=== PATIENT | female | born 1950 | race Caucasian/White ===

== ENCOUNTER → 2017-07-24 | Emergency (ER) | payer MEDICARE ==
[~2017-07-24] VITALS: Ht 162.6 cm; Wt 98.4 kg
[~2017-07-24] MED LIST: ALPR0.25 PO; IV NORMAL SALINE 1,000ML 1,000 ML IV ONE; METO-239 PO; OMEP20TA63 PO; ONDA4TAB7 PO; ONDANSETRON PF 4 MG/2 ML VIAL. IV ONE
--- NOTE | 2017-07-24 14:19 | EKG ---
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
[2017-07-24 14:29] LABS: BASO % 0 % (0-3); EOS % 0 % (0-3); HEMATOCRIT 45.7 % (36.0-47.0); HEMOGLOBIN 15.6 g/dL (12.0-15.5); LYMPH # 0.3 x10^3/uL (1.0-4.8); LYMPH % 5 % (24-48); MEAN CORPUSCULAR HEMOGLOBIN 31 pg (25-35); MEAN CORPUSCULAR HGB CONC 34 g/dL (31-37); MEAN CORPUSCULAR VOLUME 90 fL (79-100); MONO # 0.3 x10^3/uL (0.0-1.1); MONO % 4 % (0-9); NEUT # 5.7 x10^3uL (1.8-7.7); NEUT % 90 % (31-73); PLATELET COUNT 136 x10^3/uL (140-400); RED BLOOD COUNT 5.08 x10^6/uL (3.50-5.40); RED CELL DISTRIBUTION WIDTH 13.6 % (11.5-14.5); WHITE BLOOD COUNT 6.4 x10^3/uL (4.0-11.0)
[2017-07-24 14:44] LABS: ALBUMIN 3.7 g/dL (3.4-5.0); ALBUMIN/GLOBULIN RATIO 1.1 (1.0-1.7); CALCIUM 8.9 mg/dL (8.5-10.1); CREATININE 0.7 mg/dL (0.6-1.0); POTASSIUM 4.3 mmol/L (3.5-5.1); TOTAL BILIRUBIN 0.8 mg/dL (0.2-1.0)
[2017-07-24 15:15] LABS: INFLUENZA A PATIENT NEGATIVE (NEGATIVE); INFLUENZA B PATIENT NEGATIVE (NEGATIVE)
[2017-07-24 15:37] LABS: BACTERIA,URINE 0 /HPF (0-FEW); BILIRUBIN,URINE NEG (NEG); CLARITY,URINE HAZY; COLOR,URINE YELLOW; GLUCOSE,URINE NEG (NEG); NITRITE,URINE NEG (NEG); SQUAMOUS EPITHELIAL CELL,UR FEW /LPF; UROBILINOGEN,URINE 0.2 mg/dL (0.2 mg/dL)
[2017-07-24 15:40] VITALS: BP 121/73
--- NOTE | 2017-07-24 21:40 | ED.ADGEN ---
Past History Past Medical History: A-Fib, Hypertension, Other Past Surgical History: Appendectomy, Hysterectomy, Other Alcohol Use: None Drug Use: None Adult General HPI HPI Patient is a 57-year-old woman, history of atrial fibrillation, hypertension, who presents to the emergency department with complaint of "flulike symptoms". Patient states she received her flu and pneumonia vaccinations on , she states that beginning night she began experiencing body aches, nausea and vomiting, diarrhea, and generalized malaise. She denies any fevers or chills , any chest pain or shortness breath, any cough, any blood in her stool, any urinary complaints. No sick contacts or exposures. She states she also has some redness in the left upper extremity where she received a flu vaccination. Review of Systems Review of Systems Constitutional: Denies fever or chills []generalized malaise. Eyes: Denies change in visual acuity, redness, or eye pain [] HENT: Denies nasal congestion or sore throat [] Respiratory: Denies cough or shortness of breath [] Cardiovascular: No additional information not addressed in HPI [] GI: Denies abdominal pain, complaining of nausea, vomiting, diarrhea. No bloody stools or bloody emesis. : Denies dysuria or hematuria [] Musculoskeletal: Denies back pain or joint pain [] Integument: Denies rash or skin lesions [] Neurologic: Denies headache, focal weakness or sensory changes [] Endocrine: Denies polyuria or polydipsia [] Current Medications Current Medications Current Medications Medications (Trade) Dose Ordered Sig/Gerald Start Time Stop Time Status Last Admin Dose Admin Ondansetron HCl (Zofran) 4 mg 1X ONCE 07/24/17 14:15 07/24/17 14:16 DC 07/24/17 14:19 4 MG Sodium Chloride 1,000 ml @ 1,000 mls/hr 1X ONCE 07/24/17 14:20 07/24/17 15:19 DC 07/24/17 14:20 1,000 MLS/HR Allergies Allergies Allergies Coded Allergies Type Severity Reaction Last Updated Verified No Known Drug Allergies 10/14/14 No Physical Exam Physical Exam Constitutional: Well developed, well nourished, no acute distress, non-toxic appearance. [] HENT: Normocephalic, atraumatic, bilateral external ears normal, oropharynx moist, no oral exudates, nose normal. [] Eyes: PERRLA, EOMI, conjunctiva normal, no discharge. [] Neck: Normal range of motion, no tenderness, supple, no stridor. [] Cardiovascular:Heart rate regular rhythm, no murmur , S1, S2, rubs or gallops.[] Lungs & Thorax: Bilateral breath sounds clear to auscultation , no wheezing, rhonchi, rales. No chest or crepitus or tenderness.[] Abdomen: Bowel sounds normal, soft, no tenderness, no rebound, rigidity, no guarding, no masses, no pulsatile masses. [] Skin: Warm, dry, no erythema, no rash. []Patient noted to have areas of mild irritation, redness left upper extremity, below the area where the patient receive her flu vaccination. No evidence of induration or abscess formation. No other lesions identified. Back: No tenderness, no CVA tenderness. [] Extremities: No tenderness, no cyanosis, no clubbing, ROM intact, no edema. Negative Homans sign.[] Neurologic: Alert and oriented X 3, normal motor function, normal sensory function, no focal deficits noted. [] Psychologic: Affect normal, judgement normal, mood normal. [] Current Patient Data Vital Signs Vital Signs Date Time Temp Pulse Resp B/P (MAP) Pulse Ox O2 Delivery O2 Flow Rate FiO2 07/24/17 15:40 69 16 121/73 (89) 96 Room Air 07/24/17 13:54 98.0 Lab Results Laboratory Tests Test 07/24/17 14:00 07/24/17 14:10 07/24/17 15:10 Influenza Type A (Rapid) Negative (NEGATIVE) Influenza Type B (Rapid) Negative (NEGATIVE) White Blood Count 6.4 x10^3/uL (4.0-11.0) Red Blood Count 5.08 x10^6/uL (3.50-5.40) Hemoglobin 15.6 g/dL (12.0-15.5) H Hematocrit 45.7 % (36.0-47.0) Mean Corpuscular Volume 90 fL (79-100) Mean Corpuscular Hemoglobin 31 pg (25-35) Mean Corpuscular Hemoglobin Concent 34 g/dL (31-37) Red Cell Distribution Width 13.6 % (11.5-14.5) Platelet Count 136 x10^3/uL (140-400) L Neutrophils (%) (Auto) 90 % (31-73) H Lymphocytes (%) (Auto) 5 % (24-48) L Monocytes (%) (Auto) 4 % (0-9) Eosinophils (%) (Auto) 0 % (0-3) Basophils (%) (Auto) 0 % (0-3) Neutrophils # (Auto) 5.7 x10^3uL (1.8-7.7) Lymphocytes # (Auto) 0.3 x10^3/uL (1.0-4.8) L Monocytes # (Auto) 0.3 x10^3/uL (0.0-1.1) Eosinophils # (Auto) 0.0 x10^3/uL (0.0-0.7) Basophils # (Auto) 0.0 x10^3/uL (0.0-0.2) Sodium Level 141 mmol/L (136-145) Potassium Level 4.3 mmol/L (3.5-5.1) Chloride Level 105 mmol/L (98-107) Carbon Dioxide Level 26 mmol/L (21-32) Anion Gap 10 (6-14) Blood Urea Nitrogen 20 mg/dL (7-20) Creatinine 0.7 mg/dL (0.6-1.0) Estimated GFR (Cockcroft-Gault) 83.0 BUN/Creatinine Ratio 29 (6-20) H Glucose Level 120 mg/dL (70-99) H Calcium Level 8.9 mg/dL (8.5-10.1) Total Bilirubin 0.8 mg/dL (0.2-1.0) Aspartate Amino Transferase (AST) 49 U/L (15-37) H Alanine Aminotransferase (ALT) 66 U/L (14-59) H Alkaline Phosphatase 133 U/L (46-116) H Total Protein 7.0 g/dL (6.4-8.2) Albumin 3.7 g/dL (3.4-5.0) Albumin/Globulin Ratio 1.1 (1.0-1.7) Lipase 93 U/L (73-393) Urine Collection Type Unknown Urine Color Yellow Urine Clarity Hazy Urine pH 5.0 Urine Specific [place] 1.015 Urine Protein Neg (NEG-TRACE) Urine Glucose (UA) Neg mg/dL (NEG) Urine Ketones (Stick) 15 mg/dL (NEG) Urine Blood Mod (NEG) Urine Nitrite Neg (NEG) Urine Bilirubin Neg (NEG) Urine Urobilinogen Dipstick 0.2 mg/dL (0.2 mg/dL) Urine Leukocyte Esterase Neg (NEG) Urine RBC 1-2 /HPF (0-2) Urine WBC 1-4 /HPF (0-4) Urine Squamous Epithelial Cells Few /LPF Urine Bacteria 0 /HPF (0-FEW) Urine Mucus Mod /LPF EKG EKG EC: Sinus rhythm, heart rate 74 beats/minute, occasional APCs noted, left axis deviation, QTC of 438, ME 176, QRS of 92, abnormal ECG, does not meet STEMI criteria. As interpreted by me.[] Radiology/Procedures Radiology/Procedures Not indicated.[] Course & Med Decision Making Course & Med Decision Making Pertinent Labs and Imaging studies reviewed. (See chart for details) Patient afebrile, without any abdominal tenderness or evidence of lower airspace disease identified on examination. Laboratory studies obtained, do not reveal any evidence of acutely concerning findings. Patient received IV fluids, and Zofran in the ED. On reevaluation she states she is feeling "so much better ". Findings discussed with patient, patient is exhibiting signs of a viral type syndrome, which may be a reaction to her recent flu vaccination, patient's flu swabs are negative in the ED. Patient states that she feels ready to go home at this time, and is ambulating without difficulty in the ED, we discussed concerning symptoms that would prompt return to the emergency department, importance of staying well-hydrated, use of jriz-tqz-vanxxaj medications, and getting plenty of rest. Patient to follow-up with her primary care provider, to continue medications as directed by her PCP, and to return to the ED for any new or concerning symptoms as discussed. Final Impression Final Impression [] Problems: Dragon Disclaimer Dragon Disclaimer This electronic medical record was generated, in whole or in part, using a voice recognition dictation system. Departure: Impression: Primary Impression: Viral syndrome Disposition: HOME, SELF-CARE Condition: IMPROVED Scripts Ondansetron Hcl (ZOFRAN) 4 Mg Tablet 4 MG PO PRN Q8HRS Y for NAUSEA/VOMITING, #12 Prov: JOSE LUIS ZAIDI DO 07/24/17 JOSE LUIS ZAIDI DO Jul 24, 2017 21:40
== END ==
LOC: ER 13:19
DX: B34.9 Viral infection, unspecified (principal); I10 Essential (primary) hypertension; I48.91 Unspecified atrial fibrillation
CPT/HCPCS: 36415; 80053; 81001; 83690; 85025; 87804; 93005; 96361; 96374; 99285; J2405; 99284; J7030

== ENCOUNTER → 2017-08-03 | Outpatient (CLI) | payer MEDICARE ==
[2017-07-24 15:40] VITALS: BP 121/73
[~2017-08-03] MED LIST changes: -IV NORMAL SALINE 1,000ML 1,000 ML IV ONE; -ONDANSETRON PF 4 MG/2 ML VIAL. IV ONE
--- NOTE | 2017-08-03 16:08 | RAD ---
Right lower extremity venous ultrasound, 08/03/2017 : History: Right lower leg pain Duplex evaluation including grayscale, color flow and spectral Doppler analysis was performed. The femoral and popliteal veins show no filling defects to suggest DVT. The visualized deep veins in the right calf are unremarkable. There are multiple superficial varicosities along the medial aspect of the calf. No thrombosed varicosities are noted. There is a 4.6 cm fluid collection in the popliteal fossa compatible with a Mejia's cyst. IMPRESSION: 1. There is no sonographic evidence of deep vein thrombosis in the right lower extremity. 2. Moderate superficial varicosities in the right calf. 3. Right popliteal cyst
== END | disposition home or self-care (01) ==
LOC: US 14:08
PROVIDERS: ATTEND Family Medicine
DX: M71.21 Synovial cyst of popliteal space [Baker], right knee (principal); I83.91 Asymptomatic varicose veins of right lower extremity
CPT/HCPCS: 93971

== ENCOUNTER 2017-12-28 22:29 | Emergency (ER) | payer MEDICARE ==
[~2017-12-28] VITALS: Ht 162.6 cm; Wt 100.1 kg
[2017-12-28] MEDS ORDERED: ONDANSETRON PF 4 MG/2 ML VIAL. ONE (23:02)
[2017-12-28 23:12] LABS: BASO % 0 % (0-3); EOS # 0.1 x10^3/uL (0.0-0.7); EOS % 1 % (0-3); HEMATOCRIT 44.8 % (36.0-47.0); HEMOGLOBIN 15.1 g/dL (12.0-15.5); LYMPH # 1.2 x10^3/uL (1.0-4.8); LYMPH % 14 % (24-48); MEAN CORPUSCULAR HEMOGLOBIN 30 pg (25-35); MEAN CORPUSCULAR HGB CONC 34 g/dL (31-37); MEAN CORPUSCULAR VOLUME 90 fL (79-100); MONO # 0.3 x10^3/uL (0.0-1.1); MONO % 3 % (0-9); NEUT # 6.9 x10^3uL (1.8-7.7); NEUT % 82 % (31-73); PLATELET COUNT 155 x10^3/uL (140-400); RED BLOOD COUNT 4.96 x10^6/uL (3.50-5.40); RED CELL DISTRIBUTION WIDTH 13.7 % (11.5-14.5); WHITE BLOOD COUNT 8.4 x10^3/uL (4.0-11.0)
--- NOTE | 2017-12-28 23:21 | PHYS DOC ---
Past History Past Medical History: A-Fib, Hypertension, Other Past Surgical History: Appendectomy, Hysterectomy, Other Alcohol Use: None Drug Use: None Adult General Chief Complaint Chief Complaint: RECTAL BLEED HPI HPI Patient is a 67 year old female who presents with complaint of rectal bleeding. Patient states her symptoms have been intermittent throughout the day today. Patient states that she has noticed significant amounts of bright red blood in her stools. Patient states she has history of gastric ulcers but has had no prior history of lower GI bleeding. Patient states that she feels sick to her stomach but is not having any pain in her abdomen. Patient denies any associated fevers. Patient follows a Dr. Patiño for primary care. The patient is currently on Eliquis for treatment of chronic atrial fibrillation.[] Review of Systems Review of Systems Constitutional: Generalized weakness, denies fever[] Eyes: Denies change in visual acuity, redness, or eye pain [] HENT: Denies nasal congestion or sore throat [] Respiratory: Shortness breath with exertion[] Cardiovascular: Denies chest pain or edema[] GI: Bloody stools, nausea, denies abdominal pain[] : Denies dysuria or hematuria [] Musculoskeletal: Denies back pain or joint pain [] Integument: Denies rash or skin lesions [] Neurologic: Denies headache, focal weakness or sensory changes [] All other systems were reviewed and found to be within normal limits, except as documented in this note. Current Medications Current Medications Current Medications Medications (Trade) Dose Ordered Sig/Gerald Start Time Stop Time Status Last Admin Dose Admin Ondansetron HCl (Zofran) 4 mg STK-MED ONCE 12/28/17 23:02 12/28/17 23:03 DC Sodium Chloride 1,000 ml @ 1,000 mls/hr Q1H 12/28/17 23:30 12/29/17 00:29 Allergies Allergies Allergies Coded Allergies Type Severity Reaction Last Updated Verified No Known Drug Allergies 10/14/14 No Physical Exam Physical Exam Constitutional: Alert, afebrile, appears in [id number] discomfort. [] HENT: Normocephalic, atraumatic, bilateral external ears normal, oropharynx moist, no oral exudates, nose normal. [] Eyes: PERRLA, EOMI, conjunctiva normal, no discharge. [] Neck: Normal range of motion, no tenderness, supple, no stridor. [] Cardiovascular: Tachycardia, irregular rhythm, no murmur [] Lungs & Thorax: Bilateral breath sounds clear to auscultation [] Abdomen: Bowel sounds normal, soft, no tenderness, no masses, no pulsatile masses. Rectal: Dried blood present on external orifice of the anus, moderate amount of dried blood on underwear and peroneal distribution, stool brown in color, nontender on exam, no external hemorrhoids or palpated internal hemorrhoids[] Skin: Warm, dry, no erythema, no rash. [] Back: No tenderness, no CVA tenderness. [] Extremities: No tenderness, no cyanosis, no clubbing, ROM intact, no edema. [] Neurologic: Alert and oriented X 3, normal motor function, normal sensory function, no focal deficits noted. [] Current Patient Data Vital Signs Vital Signs Date Time Temp Pulse Resp B/P (MAP) Pulse Ox O2 Delivery O2 Flow Rate FiO2 12/28/17 22:30 97.8 72 24 94 Room Air Lab Results Laboratory Tests Test 12/28/17 22:53 12/28/17 23:20 White Blood Count 8.4 x10^3/uL Red Blood Count 4.96 x10^6/uL Hemoglobin 15.1 g/dL Hematocrit 44.8 % Mean Corpuscular Volume 90 fL Mean Corpuscular Hemoglobin 30 pg Mean Corpuscular Hemoglobin Concent 34 g/dL Red Cell Distribution Width 13.7 % Platelet Count 155 x10^3/uL Neutrophils (%) (Auto) 82 % Lymphocytes (%) (Auto) 14 % Monocytes (%) (Auto) 3 % Eosinophils (%) (Auto) 1 % Basophils (%) (Auto) 0 % Neutrophils # (Auto) 6.9 x10^3uL Lymphocytes # (Auto) 1.2 x10^3/uL Monocytes # (Auto) 0.3 x10^3/uL Eosinophils # (Auto) 0.1 x10^3/uL Basophils # (Auto) 0.0 x10^3/uL Prothrombin Time 10.7 SEC Prothromb Time International Ratio 1.0 Activated Partial Thromboplast Time 26 SEC Sodium Level 143 mmol/L Potassium Level 3.7 mmol/L Chloride Level 107 mmol/L Carbon Dioxide Level 25 mmol/L Anion Gap 11 Blood Urea Nitrogen 25 mg/dL Creatinine 0.8 mg/dL Estimated GFR (Cockcroft-Gault) 71.1 BUN/Creatinine Ratio 31 Glucose Level 131 mg/dL Calcium Level 9.2 mg/dL Total Bilirubin 0.4 mg/dL Aspartate Amino Transf (AST/SGOT) 18 U/L Alanine Aminotransferase (ALT/SGPT) 23 U/L Alkaline Phosphatase 111 U/L Total Protein 7.4 g/dL Albumin 3.8 g/dL Albumin/Globulin Ratio 1.1 Urine Collection Type Unknown Urine Color Yellow Urine Clarity Clear Urine pH 5.5 Urine Specific [place] 1.015 Urine Protein Neg Urine Glucose (UA) Neg mg/dL Urine Ketones (Stick) Neg mg/dL Urine Blood Small Urine Nitrite Neg Urine Bilirubin Neg Urine Urobilinogen Dipstick 0.2 mg/dL Urine Leukocyte Esterase Neg Urine RBC Rare /HPF Urine WBC Rare /HPF Urine Squamous Epithelial Cells Few /LPF Urine Bacteria 0 /HPF Stool Occult Blood Positive Current Medications Medications (Trade) Dose Ordered Sig/Gerald Route PRN Reason Start Time Stop Time Status Last Admin Dose Admin Sodium Chloride 1,000 ml @ 1,000 mls/hr Q1H IV 12/28/17 23:30 12/29/17 00:29 12/28/17 23:30 Ondansetron HCl (Zofran) 4 mg STK-MED ONCE .ROUTE 12/28/17 23:02 12/28/17 23:03 DC Lorazepam (Ativan) 1 mg 1X ONCE IV 12/28/17 23:30 12/28/17 23:31 DC 12/28/17 23:31 Ondansetron HCl (Zofran) 4 mg 1X ONCE IV 12/28/17 23:30 12/28/17 23:31 DC 12/28/17 23:31 EKG EKG Interpreted by me: Heart rate 75, sinus rhythm, leftward axis, no acute ST/T- wave abnormalities present[] Radiology/Procedures Radiology/Procedures 3 view acute abdominal series interpreted by me: No pulmonary infiltrates or effusions, normal cardiac silhouette, nonobstructive bowel gas pattern, no free air under the diaphragm[] Course & Med Decision Making Course & Med Decision Making Pertinent Labs and Imaging studies reviewed. (See chart for details) The patient has evidence of passing a significant amount of blood recently though currently the patient only had scant amounts of gross blood on exam. Of concern however is that fact that the patient has lower GI bleeding of unknown source and patient is currently blood thinner therapy. Patient is appropriate for admission for further surveillance and GI consultation. Unfortunately GI consultation is not available at this facility, thus the decision was made to transfer the patient. I spoke with Dr. Raya at [facility] who accepted care of patient for transfer. Patient will be transferred by ground EMS to [facility]. Dragon Disclaimer Dragon Disclaimer This electronic medical record was generated, in whole or in part, using a voice recognition dictation system. Departure Departure: Impression: Primary Impression: Acute lower GI bleeding Disposition: T-TRM HOSP Condition: STABLE Referrals: LADAN PATIÑO MD (PCP) JOSEFA FERGUSON MD Dec 28, 2017 23:21
[2017-12-28 23:27] LABS: ALBUMIN 3.8 g/dL (3.4-5.0); ALBUMIN/GLOBULIN RATIO 1.1 (1.0-1.7); CALCIUM 9.2 mg/dL (8.5-10.1); CREATININE 0.8 mg/dL (0.6-1.0); GFR 71.1; POTASSIUM 3.7 mmol/L (3.5-5.1); TOTAL BILIRUBIN 0.4 mg/dL (0.2-1.0); TOTAL PROTEIN 7.4 g/dL (6.4-8.2)
[2017-12-28] MEDS ORDERED: IV NORMAL SALINE 1,000ML 1,000 ML IV SCH (23:30)
[2017-12-28] MEDS ORDERED: ONDANSETRON PF 4 MG/2 ML VIAL. IV ONE (23:30)
[2017-12-28] MEDS ORDERED: LORazepam 2 MG/ML VIAL IV ONE (23:30)
[2017-12-28 23:45] LABS: BILIRUBIN,URINE NEG (NEG); CLARITY,URINE CLEAR; COLOR,URINE YELLOW; GLUCOSE,URINE NEG (NEG); NITRITE,URINE NEG (NEG); UROBILINOGEN,URINE 0.2 mg/dL (0.2 mg/dL)
[2017-12-28 23:46] LABS: BACTERIA,URINE 0 /HPF (0-FEW); FECAL OB PT POSITIVE (NEG); RBC,URINE RARE /HPF (0-2); SQUAMOUS EPITHELIAL CELL,UR FEW /LPF; WBC,URINE RARE /HPF (0-4)
[2017-12-28] MEDS ORDERED: PROP150T2 PO (23:46)
[2017-12-28] MEDS ORDERED: APIX5TAB3 PO (23:46)
[2017-12-29 00:12] VITALS: BP 116/62
--- NOTE | 2017-12-29 04:11 | EKG ---
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
--- NOTE | 2017-12-29 07:10 | RAD ---
Indication: Rectal bleeding, general weakness, chills and nausea Technique: PA chest and upright and supine views of the abdomen and pelvis Comparison: None Findings: Heart is normal in size. Tortuous descending thoracic aorta. Lungs are clear. No pneumothorax or pleural effusion. No evidence of free intraperitoneal air. No abnormally dilated bowel loops or air-fluid levels. No abnormal calcific densities projecting over the kidneys or expected course of the ureters. Visualized bones are within normal limits. Impression: No acute radiographic findings.
== END 2017-12-29 00:42 | disposition short-term general hospital (02) ==
LOC: ER 22:29
DX: K92.2 Gastrointestinal hemorrhage, unspecified (principal); I48.2 Chronic atrial fibrillation; I10 Essential (primary) hypertension; Z79.01 Long term (current) use of anticoagulants
CPT/HCPCS: 36415; 74022; 80053; 81001; 82274; 85025; 85610; 85730; 93005; 96361; 96374; 96375; 99285; J2060; J2405; J7030

== ENCOUNTER 2018-12-11 09:00 | Emergency (ER) | payer MEDICARE ==
[~2018-12-11] VITALS: Ht 162.6 cm; Wt 100.1 kg
[~2018-12-11 09:00] MED LIST changes: +APIX5TAB3 PO; +PROP150T2 PO
[2018-12-11] MEDS ORDERED: ONDANSETRON PF 4 MG/2 ML VIAL. ONE (09:19)
[2018-12-11] MEDS: FAMOTIDINE 20 MG/2 ML VIAL IVP ONE (09:31)
[2018-12-11] MEDS: ONDANSETRON PF 4 MG/2 ML VIAL. IV ONE (09:33)
[2018-12-11] MEDS: IV NORMAL SALINE 1,000ML 1,000 ML IV ONE (09:34)
--- NOTE | 2018-12-11 09:36 | PHYS DOC ---
Past History Past Medical History: A-Fib, Anxiety, GERD, Hypertension, Other Past Surgical History: Appendectomy, Hysterectomy, Other Alcohol Use: None Drug Use: None Adult General Chief Complaint Chief Complaint: nausea HPI HPI Patient is a 68 year old female who presents with complaining of nausea. Patient states she had right hip surgery after a fall on November 13 and was discharged from rehabilitation 5 days ago. Patient states she had episodes of nausea in the morning that usually lasts about one or 2 hours and she thinks it was related to her anxiety but for the last 4 days she has had frequent episodes of nausea all day without vomiting. Patient denies diarrhea, chest pain , shortness of breath, urinary symptoms, fever and chills, abdominal pain. Patient states she was seen by her primary care physician 2 days ago and had prescription for nausea medication that was not available at [facility]. Review of Systems Review of Systems Constitutional: Denies fever or chills [] Eyes: Denies change in visual acuity, redness, or eye pain [] HENT: Denies nasal congestion or sore throat [] Respiratory: Denies cough or shortness of breath [] Cardiovascular: No additional information not addressed in HPI [] GI: Denies abdominal pain, vomiting, bloody stools or diarrhea, reports nausea [] : Denies dysuria or hematuria [] Musculoskeletal: Denies back pain or joint pain [] Integument: Denies rash or skin lesions [] Neurologic: Denies headache, focal weakness or sensory changes [] Endocrine: Denies polyuria or polydipsia [] All other systems were reviewed and found to be within normal limits, except as documented in this note. Current Medications Current Medications Current Medications Medications (Trade) Dose Ordered Sig/[facility] Start Time Stop Time Status Last Admin Dose Admin Ondansetron HCl (Zofran) 4 mg STK-MED ONCE 12/11/18 09:19 12/11/18 09:20 DC Allergies Allergies Allergies Coded Allergies Type Severity Reaction Last Updated Verified No Known Drug Allergies 10/14/14 No Physical Exam Physical Exam Constitutional: Well nourished, mild distress, non-toxic appearance. [] HENT: Normocephalic, atraumatic, oropharynx moist, no oral exudates, nose normal. [] Eyes: PERRLA, EOMI, conjunctiva normal, no discharge. [] Neck: Normal range of motion, no tenderness, supple, no stridor. [] Cardiovascular:Heart rate regular rhythm, no murmur [] Lungs & Thorax: Bilateral breath sounds clear to auscultation [] Abdomen: Bowel sounds normal, soft, no tenderness, no masses, no pulsatile masses. [] Skin: Warm, dry, no erythema, no rash. [] Back: No tenderness, no CVA tenderness. [] Extremities: No tenderness, no cyanosis, no clubbing, ROM intact, no edema. [] Neurologic: Alert and oriented X 3, normal motor function, normal sensory function, no focal deficits noted. [] Psychologic: Affect anxious, judgement normal, mood normal. [] EKG EKG EKG interpreted by me. EKG at 0943 showed sinus rhythm at rate of 59, low voltage QRS, poor R-wave progress in anteroseptal leads, no acute ST and T-wave abnormalities. Radiology/Procedures Radiology/[place] [address] IMAGING REPORT Signed PATIENT: TYRESE PORTER ACCOUNT: [id number] : 1950 LOCATION: ER AGE: 68 SEX: F EXAM STATUS: REG ER ORD. PHYSICIAN: CARROLL DAVID MD REASON: episodes of nausea PROCEDURE: ABDOMEN LTD Right upper quadrant abdominal ultrasound, 12/11/2018: HISTORY: Nausea and vomiting The gallbladder appears contracted and is poorly delineated. No definite gallstones are seen. The common hepatic duct is within normal limits measuring 4 mm. No hepatic abnormality is seen. The visualized portions of the pancreas are unremarkable. Several right renal cysts are noted. The largest of these measures 10.9 cm and arises from the lower pole. IMPRESSION: 1. Contracted, poorly delineated gallbladder. 2. Large right renal cyst. Electronically signed by: Randolph Cuevas MD (12/11/2018 10:59 AM) [facility] DICTATED AND SIGNED BY: RANDOLPH CUEVAS MD DATE: 12/11/18 1059 CC: LADAN RAMIREZ MD; CARROLL DAVID MD ~ Course & Med Decision Making Course & Med Decision Making Pertinent Labs and Imaging studies reviewed. (See chart for details) Evaluation of patient in ER showed 68-year-old female patient with complaining of nausea for almost one month that getting worse for the last 4 days. Patient was anxious and had unremarkable physical exam. Patient taking hydrocodone for right hip surgery. Patient instructed to take pain medication with food and prescription for Zofran was given. Ultrasound of gallbladder and right upper quadrant showed multiple right renal cyst and patient instructed to follow-up with on-call urologist. @ 1400: Patient was informed about the blood test results and renal disease and needs for follow-up but patient became anxious and had heart rate of 120s at time of discharge. EKG at 1207 showed atrial fibrillation with heart rate of 118 with left rowan axis deviation without acute ST and T-wave abnormalities. Patient treated with Ativan with mild improvement of heart rate at 110. Patient had 20 mg of Cardizem IV bolus with improving heart rate of 75 with atrial fibrillation. Patient did not take her metoprolol today. 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 Dragon Disclaimer Dragon Disclaimer This electronic medical record was generated, in whole or in part, using a voice recognition dictation system. Departure Departure: Impression: Primary Impression: Nausea Additional Impressions: Renal cyst Anxiety Medication side effect Atrial fibrillation with RVR Disposition: HOME, SELF-CARE (at 1400) Condition: IMPROVED Referrals: LADAN RAMIREZ MD (PCP) TR[facility] EDGE Patient Instructions: Atrial Fibrillation, Ixch-hy-Hnee, Nausea, Adult Additional Instructions: Drink plenty of liquids Follow-up with your primary care physician in 3-5 days Return to ER if not getting better Follow-up with on-call urology physician Dr Edge in one or 2 days regarding large right kidney cyst Continue current heart medication Scripts Ondansetron Hcl (ZOFRAN) 4 Mg Tablet 1 TAB PO Q6HRS for nausea and vomiting, #12 TAB Prov: CARROLL DAVID MD 12/11/18 Critical Care Time Critical care time was 40 minutes exclusive of procedures. Problem Qualifiers CARROLL DAVID MD Dec 11, 2018 09:36
[2018-12-11 09:54] LABS: BASO % 1 % (0-3); EOS % 1 % (0-3); HEMATOCRIT 39.1 % (36.0-47.0); HEMOGLOBIN 12.8 g/dL (12.0-15.5); LYMPH # 0.7 x10^3/uL (1.0-4.8); LYMPH % 16 % (24-48); MEAN CORPUSCULAR HEMOGLOBIN 30 pg (25-35); MEAN CORPUSCULAR HGB CONC 33 g/dL (31-37); MEAN CORPUSCULAR VOLUME 90 fL (79-100); MONO # 0.2 x10^3/uL (0.0-1.1); MONO % 5 % (0-9); NEUT # 3.6 x10^3uL (1.8-7.7); NEUT % 78 % (31-73); PLATELET COUNT 204 x10^3/uL (140-400); RED BLOOD COUNT 4.34 x10^6/uL (3.50-5.40); RED CELL DISTRIBUTION WIDTH 14.8 % (11.5-14.5); WHITE BLOOD COUNT 4.6 x10^3/uL (4.0-11.0)
[2018-12-11 10:09] LABS: ALBUMIN 3.3 g/dL (3.4-5.0); ALBUMIN/GLOBULIN RATIO 0.9 (1.0-1.7); CALCIUM 8.9 mg/dL (8.5-10.1); CREATININE 0.6 mg/dL (0.6-1.0); GFR 98.8; POTASSIUM 3.5 mmol/L (3.5-5.1); TOTAL BILIRUBIN 0.6 mg/dL (0.2-1.0); TOTAL PROTEIN 6.8 g/dL (6.4-8.2)
[2018-12-11 10:56] LABS: BACTERIA,URINE 0 /HPF (0-FEW); BILIRUBIN,URINE NEG (NEG); CLARITY,URINE CLEAR; COLOR,URINE YELLOW; GLUCOSE,URINE NEG (NEG); NITRITE,URINE NEG (NEG); RBC,URINE RARE /HPF (0-2); SQUAMOUS EPITHELIAL CELL,UR OCC /LPF; UROBILINOGEN,URINE 0.2 mg/dL (0.2 mg/dL); WBC,URINE RARE /HPF (0-4)
--- NOTE | 2018-12-11 11:02 | RAD ---
Right upper quadrant abdominal ultrasound, 12/11/2018: HISTORY: Nausea and vomiting The gallbladder appears contracted and is poorly delineated. No definite gallstones are seen. The common hepatic duct is within normal limits measuring 4 mm. No hepatic abnormality is seen. The visualized portions of the pancreas are unremarkable. Several right renal cysts are noted. The largest of these measures 10.9 cm and arises from the lower pole. IMPRESSION: 1. Contracted, poorly delineated gallbladder. 2. Large right renal cyst. Electronically signed by: Randolph Salvador MD (12/11/2018 10:59 AM) [facility]
[2018-12-11] MEDS ORDERED: ONDA4TAB7 PO (11:26)
[2018-12-11] MEDS ORDERED: dilTIAZem 25 MG/5 ML VIAL IVP ONE (12:30)
[2018-12-11] MEDS: dilTIAZem 25 MG/5 ML VIAL IVP ONE (13:18)
[2018-12-11 14:32] VITALS: BP 108/58
--- NOTE | 2018-12-11 16:47 | EKG ---
[address] [address] Test Date: 2018-12-11 Test Time: 12:07:12 Pat Name: TYRESE PORTER Department: Room: Gender: F Legal Process Specialist: MARBELLA : 1950 Requested By: CARROLL DAVID Order Number: [id number] Reading MD: Keegan Villaseñor MD Measurements Intervals [place] Rate: 108 P: [place]: QRS: -11 QRSD: 92 T: 16 QT: 344 QTc: 465 Interpretive Statements ATRIAL FIBRILLATION WITH RVR NON-SPECIFIC ST/T CHANGES Electronically Signed On 12-19-2018 23:17:04 CDT by Keegan Villaseñor MD
--- NOTE | 2018-12-11 16:54 | EKG ---
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
== END 2018-12-11 14:32 | disposition home or self-care (01) ==
LOC: ER 09:00
DX: N28.1 Cyst of kidney, acquired (principal); I48.2 Chronic atrial fibrillation; F41.9 Anxiety disorder, unspecified; N32.89 Other specified disorders of bladder; T40.2X5A Adverse effect of other opioids, initial encounter; R11.2 Nausea with vomiting, unspecified; K21.9 Gastro-esophageal reflux disease without esophagitis; I10 Essential (primary) hypertension; Z90.89 Acquired absence of other organs; Z90.710 Acquired absence of both cervix and uterus; Y92.89 Other specified places as the place of occurrence of the external cause
CPT/HCPCS: 36415; 76705; 80053; 81001; 83690; 83880; 84484; 85025; 93005; 96361; 96374; 96375; 99284; J2060; J2405; J3490; J7030

== ENCOUNTER → 2020-04-30 | Outpatient (CLI) | payer MEDICARE ==
--- NOTE | 2020-04-30 10:34 | RAD ---
Bilateral knees, 3 views each INDICATION: Bilateral knee pain FINDINGS: AP, lateral and oblique views of the right knee shows medial joint space narrowing and mild subchondral sclerosis with osteophytic spurring. To a lesser extent, mild osteophytic spurring is present in the right superior patella pole and in the anterior aspect of the femoral condyles on the lateral view as well. Mild varus angulation is present. Bones are demineralized. No acute fracture or aggressive osseous lesions are seen. No joint effusion. There are varices in the subcutaneous soft tissues around the right knee. AP, lateral and oblique views of the left knee show medial compartment osteophytic spurring, subchondral sclerosis and joint space narrowing. There is bulky osteophytic spurring in the anterior femoral condyle and the superior patella pole on the lateral view. No joint effusion. No loose bodies identified. Soft tissues show prominent varices in the subcutaneous soft tissues. IMPRESSION: Bilateral knee degenerative changes, medial compartment predominant, with prominent left greater than right patellofemoral compartment involvement as well. No fracture or aggressive osseous lesion. Electronically signed by: Derrick Wheatley MD (04/30/2020 10:31 AM) [id number]
== END ==
LOC: RAD 09:35
PROVIDERS: ATTEND Physician Assistant
DX: M17.0 Bilateral primary osteoarthritis of knee (principal)
CPT/HCPCS: 73562

== ENCOUNTER 2020-10-09 16:38 | Inpatient (IN) | payer MEDICARE ==
[~2020-10-09] VITALS: Ht 162.6 cm; Wt 106.0 kg
--- NOTE | 2020-10-09 16:49 | PHYS DOC ---
Past History Past Medical History: A-Fib, Anxiety, GERD, Hypertension, Other (CECE GODINEZ DO) Past Medical History: Anxiety, Arthritis (NGOC MARIA MD) Past Surgical History: Appendectomy, Hysterectomy, Other (CECE GODINEZ DO) Alcohol Use: None Drug Use: None (CECE GODINEZ DO) Adult General HPI HPI Patient is a 70-year-old female who presents for shortness of breath and chest pressure. Onset was 1 week ago. Nothing known makes better or worse. Patient describes dull pressure that is substernal in nature and radiates to bilateral shoulders. Timing of symptoms has waxed and waned but has been more constant past 48 hours. No known sick contacts or travel. Patient reports traveling to her primary care physician's office today for evaluation and when describing her symptoms on intake, there is immediate concern for need of higher level of care and patient was subsequently referred to our ER for evaluation. Associated symptoms include chills, generalized chest pressure, shortness of breath with dry nonproductive cough and nausea. Patient denies fever, recent travel, recent sick contacts, no COVID-19 exposure, no hemoptysis, abdominal pain, urinary symptoms, changes in bladder or bowel function, no motor or sensory function changes. Patient has history of atrial fibrillation for which she is controlled on sotalol and anticoagulated with Eliquis. No recent antibiotic use, no recent medication changes (CECE GODINEZ DO) Review of Systems Review of Systems Fourteen body systems of review of systems have been reviewed. See HPI for pertinent positives and negative responses, other rosales all other systems are negative, non-pertinent or non-contributory (CECE GODINEZ DO) Allergies Allergies Allergies Coded Allergies Type Severity Reaction Last Updated Verified No Known Drug Allergies 10/14/14 No (CECE GODINEZ DO) Physical Exam Physical Exam Constitutional: Well developed, well nourished, no acute distress, non-toxic appearance. HENT: Normocephalic, atraumatic, bilateral external ears normal, oropharynx moist, no oral exudates, nose normal. Eyes: PERRLA, EOMI, conjunctiva normal, no discharge. Neck: Normal range of motion, no tenderness, supple, no stridor. Cardiovascular: Heart rate regular, sinus rhythm, no murmurs rubs or gallops Lungs & Thorax: Bilateral breath sounds clear to auscultation Abdomen: Bowel sounds normal, soft, no tenderness, no masses, no pulsatile masses. Nonsurgical abdomen, no peritoneal signs Skin: Warm, dry, no erythema, no rash. Back: No tenderness, no CVA tenderness. Extremities: No tenderness, no cyanosis, no clubbing, ROM intact, no edema. Neurologic: Alert and oriented X 3, grossly normal motor & sensory function, no focal deficits noted. Psychologic: Affect normal, judgement normal, mood normal. (CECE GODINEZ DO) Current Patient Data Vital Signs Vital Signs Date Time Temp Pulse Resp B/P (MAP) Pulse Ox O2 Delivery O2 Flow Rate FiO2 10/10/20 05:02 100.8 90 20 93/54 (67) 91 Room Air 10/10/20 02:47 101.1 10/09/20 23:47 87 127/83 10/09/20 22:13 97.9 87 20 127/83 (98) 95 Room Air 10/09/20 22:00 Room Air 10/09/20 20:30 95 25 123/90 (101) 95 10/09/20 19:12 98.3 10/09/20 16:50 98.5 91 38 123/66 (85) 96 Room Air Lab Results Laboratory Tests Test 10/09/20 17:25 10/09/20 21:40 10/09/20 21:50 White Blood Count 4.5 x10^3/uL Red Blood Count 5.66 x10^6/uL Hemoglobin 16.6 g/dL Hematocrit 49.3 % Mean Corpuscular Volume 87 fL Mean Corpuscular Hemoglobin 29 pg Mean Corpuscular Hemoglobin Concent 34 g/dL Red Cell Distribution Width 13.4 % Platelet Count 123 x10^3/uL Neutrophils (%) (Auto) 63 % Lymphocytes (%) (Auto) 28 % Monocytes (%) (Auto) 9 % Eosinophils (%) (Auto) 0 % Basophils (%) (Auto) 1 % Neutrophils # (Auto) 2.8 x10^3uL Lymphocytes # (Auto) 1.2 x10^3/uL Monocytes # (Auto) 0.4 x10^3/uL Eosinophils # (Auto) 0.0 x10^3/uL Basophils # (Auto) 0.0 x10^3/uL Sodium Level 136 mmol/L Potassium Level 3.6 mmol/L Chloride Level 100 mmol/L Carbon Dioxide Level 21 mmol/L Anion Gap 15 Blood Urea Nitrogen 16 mg/dL Creatinine 0.8 mg/dL Estimated GFR (Cockcroft-Gault) 70.5 BUN/Creatinine Ratio 20 Glucose Level 120 mg/dL Calcium Level 8.6 mg/dL Total Bilirubin 0.7 mg/dL Aspartate Amino Transf (AST/SGOT) 33 U/L Alanine Aminotransferase (ALT/SGPT) 31 U/L Alkaline Phosphatase 110 U/L Troponin I Quantitative < 0.017 ng/mL < 0.017 ng/mL Total Protein 7.4 g/dL Albumin 3.5 g/dL Albumin/Globulin Ratio 0.9 Glucose (Fingerstick) 101 mg/dL Current Medications Medications (Trade) Dose Ordered Sig/Gerald Route PRN Reason Start Time Stop Time Status Last Admin Dose Admin Aspirin (Aspirin Chewable) 324 mg 1X ONCE PO 10/09/20 17:00 10/09/20 17:02 DC 10/09/20 17:37 (CECE GODINEZ DO) EKG EKG EKG ordered and interpreted by myself at 7036 hours as atrial fibrillation with an average ventricular rate of 95 bpm, unremarkable intervals, left axis deviation, no obvious ischemic findings, no STEMI (CECE GODINEZ DO) Radiology/Procedures Radiology/Procedures XR CHEST 1V Clinical History: Reason: CP, SHORT OF BREATH, COVID + / Spl. Instructions: / History: Technique: AP view of the chest was obtained at 10/09/2020 5:03 PM. Comparison: None. Findings: The cardiomediastinal silhouette is normal. The pulmonary vasculature is normal. The lungs and pleural margins are clear. Impression: No evidence of an acute cardiopulmonary process. Electronically signed by: Mason Bethea III, MD (10/09/2020 5:18 PM) [facility] (CECE GODINEZ DO) Heart Score HEART Score for Chest Pain: HEART Score for Chest Pain Response (Comments) Value History Slighlty/Non-Suspicious 0 ECG Normal 0 Age > 65 2 Risk Factors >3 Risk Factors or Hx CAD 2 Total 4 Risk Factors: Risk Factors: DM, Current or recent (<one month) smoker, HTN, HLP, family history of CAD, obesity. Risk Scores: Risk Factors: DM, Current or recent (<one month) smoker, HTN, HLP, family history of CAD, obesity. (CECE GODINEZ DO) Course & Med Decision Making Course & Med Decision Making Patient initially seen and evaluated by myself. Comprehensive history, physical exam and work-up pursued At this time in care, patient stabilized but still pending further work-up. Comprehensive signout given to Dr. Maria, oncoming physician who will assume care of patient. Please defer to his documentation regarding future care of patient while in our ER (CECE GODINEZ DO) Course & Med Decision Making See Dr. Godinez chart for detail.s\ Discussed presentation, testing and tx. plan with Dr. Ramirez- Admit with Cardiology consult. Impression:p 1. Chest pain/discomfort 2. Dyspnea 3. History of anemia (today elevated hemoglobin 16.6) 4. Thrombocytopenia 123 5. Dehydration 6. Diabetes glucose 120 (NGOC MARIA MD) Dragon Disclaimer Dragon Disclaimer This electronic medical record was generated, in whole or in part, using a voice recognition dictation system. (CECE GODINEZ DO) Departure Departure: Impression: Primary Impression: Chest pain, rule out acute myocardial infarction Additional Impression: History of atrial fibrillation Disposition: 09 ADMITTED INPT THIS HOSP Admitting Physician: Ladan Ramirez (CECE GODINEZ DO) Condition: STABLE Referrals: LADAN RAMIREZ MD (PCP) Coy Disclaimer This chart was dictated in whole or in part using Voice Recognition software in a busy, high-work load, and often noisy Emergency Department environment. It may contain unintended and wholly unrecognized errors or omissions. (NGOC MARIA MD) Problem Qualifiers CECE GODINEZ DO Oct 09, 2020 16:49 NGOC MARIA MD Oct 09, 2020 19:10
[2020-10-09] MEDS ORDERED: ASPIRIN CHEWABLE 81 MG TABLET. PO ONE (17:00)
--- NOTE | 2020-10-09 17:20 | RAD ---
XR CHEST 1V Clinical History: Reason: CP, SHORT OF BREATH, COVID + / Spl. Instructions: / History: Technique: AP view of the chest was obtained at 10/09/2020 5:03 PM. Comparison: None. Findings: The cardiomediastinal silhouette is normal. The pulmonary vasculature is normal. The lungs and pleura l margins are clear. Impression: No evidence of an acute cardiopulmonary process. Electronically signed by: Mason Bethea III, MD (10/09/2020 5:18 PM) [facility]
--- NOTE | 2020-10-09 17:40 | EKG ---
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
[2020-10-09 18:01] LABS: BASO % 1 % (0-3); EOS % 0 % (0-3); HEMATOCRIT 49.3 % (36.0-47.0); HEMOGLOBIN 16.6 g/dL (12.0-15.5); LYMPH # 1.2 x10^3/uL (1.0-4.8); LYMPH % 28 % (24-48); MEAN CORPUSCULAR HEMOGLOBIN 29 pg (25-35); MEAN CORPUSCULAR HGB CONC 34 g/dL (31-37); MEAN CORPUSCULAR VOLUME 87 fL (79-100); MONO # 0.4 x10^3/uL (0.0-1.1); MONO % 9 % (0-9); NEUT # 2.8 x10^3uL (1.8-7.7); NEUT % 63 % (31-73); PLATELET COUNT 123 x10^3/uL (140-400); RED BLOOD COUNT 5.66 x10^6/uL (3.50-5.40); RED CELL DISTRIBUTION WIDTH 13.4 % (11.5-14.5); WHITE BLOOD COUNT 4.5 x10^3/uL (4.0-11.0)
[2020-10-09 18:08] LABS: CALCIUM 8.6 mg/dL (8.5-10.1); CREATININE 0.8 mg/dL (0.6-1.0); GFR 70.5; POTASSIUM 3.6 mmol/L (3.5-5.1)
[2020-10-09 18:14] LABS: ALBUMIN 3.5 g/dL (3.4-5.0); ALBUMIN/GLOBULIN RATIO 0.9 (1.0-1.7); TOTAL BILIRUBIN 0.7 mg/dL (0.2-1.0); TOTAL PROTEIN 7.4 g/dL (6.4-8.2)
[2020-10-09] MEDS ORDERED: ONDANSETRON PF 4 MG/2 ML VIAL. IVP PRN (19:30)
[2020-10-09] MEDS: IPRATRPIUM/ALBUTEROL 0.5/2.5MG 3 ML NEBU. NEB SCH (20:00)
[2020-10-09] MEDS: IV RINGERS SOLUTION,LACTATED 1,000 ML IV SCH (20:11)
[2020-10-09 22:13] VITALS: BP 127/83
[2020-10-09] MEDS ORDERED: APIX5TAB3 PO (23:10)
[2020-10-09] MEDS ORDERED: SOTA120T27 PO (23:10)
[2020-10-09] MEDS: ALPRAZolam 0.25 MG TABLET PO PRN (23:47)
[2020-10-09] MEDS: SOTALOL 80 MG TABLET. PO SCH (23:47)
[2020-10-09] MEDS: APIXABAN 5 MG TABLET. PO SCH (23:48)
--- NOTE | 2020-10-10 00:56 | NUR ---
The patient, TYRESE PORTER, 70 y/o, F admitted by LADAN RAMIREZ MD, was given written information regarding hospital policies, unit procedures and contact persons. Valuables were checked and vital signs were noted. Reviewed with the PT her PMH, PSH, SH, FH and medications. Spoke with PT's daughter after assessment. PT is severely hard of hearing even when using her hearing aids. Paper and pen used for communication.
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
[2020-10-10] MEDS: ACETAMINOPHEN 325 MG TABLET PO PRN ×2 (02:52→15:30)
[2020-10-10] MEDS: IV RINGERS SOLUTION,LACTATED 1,000 ML IV SCH ×5 (03:26→23:07)
[2020-10-10 05:02] VITALS: BP 93/54
[2020-10-10 06:15] LABS: BASO % 1 % (0-3); EOS % 0 % (0-3); HEMATOCRIT 43.4 % (36.0-47.0); HEMOGLOBIN 14.8 g/dL (12.0-15.5); LYMPH % 29 % (24-48); MEAN CORPUSCULAR HEMOGLOBIN 30 pg (25-35); MEAN CORPUSCULAR HGB CONC 34 g/dL (31-37); MEAN CORPUSCULAR VOLUME 87 fL (79-100); MONO # 0.3 x10^3/uL (0.0-1.1); MONO % 9 % (0-9); NEUT # 2.1 x10^3uL (1.8-7.7); NEUT % 62 % (31-73); PLATELET COUNT 101 x10^3/uL (140-400); RED BLOOD COUNT 5.01 x10^6/uL (3.50-5.40); RED CELL DISTRIBUTION WIDTH 13.3 % (11.5-14.5); WHITE BLOOD COUNT 3.4 x10^3/uL (4.0-11.0)
[2020-10-10 06:22] LABS: CALCIUM 7.7 mg/dL (8.5-10.1); CREATININE 0.8 mg/dL (0.6-1.0); GFR 70.5; POTASSIUM 3.3 mmol/L (3.5-5.1)
[2020-10-10] MEDS: IPRATRPIUM/ALBUTEROL 0.5/2.5MG 3 ML NEBU. NEB SCH (08:00)
[2020-10-10] MEDS: PANTOPRAZOLE 40 MG TABLET. PO SCH (08:23)
[2020-10-10] MEDS: SOTALOL 80 MG TABLET. PO SCH ×2 (08:23→21:00)
[2020-10-10] MEDS: APIXABAN 5 MG TABLET. PO SCH (08:23)
[2020-10-10] MEDS ORDERED: ASPIRIN ENTERIC COATED 81 MG TABLET.DR. PO SCH (09:00)
[2020-10-10] MEDS ORDERED: APIXABAN 5 MG TABLET. PO SCH (09:00)
[2020-10-10] MEDS ORDERED: AZITHROMYCIN 250 MG TABLET. PO ONE (09:45)
[2020-10-10] MEDS ORDERED: ELECTROLYTE (NON-ICU) PROTOCOL. MC PRN (10:00)
[2020-10-10] MEDS: IPRATROPIUM/ALBUTEROL 20/100mcg/INH INHALER. INH SCH ×4 (10:00→22:03)
[2020-10-10] MEDS ORDERED: ENOXAPARIN 40 MG/0.4 ML SYRINGE. SQ SCH ×2 (10:00→21:00)
[2020-10-10] MEDS ORDERED: levoFLOXacin PER PHARMACY 1 EACH. MC PRN (10:00)
[2020-10-10] MEDS ORDERED: ONDANSETRON ODT 4 MG TAB.RAPDIS PO PRN (10:00)
[2020-10-10 11:02] VITALS: BP 116/58
[2020-10-10] MEDS ORDERED: ENOXAPARIN 40 MG/0.4 ML SYRINGE. SQ ONE (11:15)
[2020-10-10 12:13] LABS: BILIRUBIN,URINE SMALL (NEG); CLARITY,URINE CLEAR; COLOR,URINE YELLOW; GLUCOSE,URINE NEG (NEG)
[2020-10-10 12:14] LABS: BACTERIA,URINE 0 /HPF (0-FEW); HYALINE CASTS, URINE FEW /HPF; NITRITE,URINE NEG (NEG); RBC,URINE OCC /HPF (0-2); SQUAMOUS EPITHELIAL CELL,UR MANY /LPF; UROBILINOGEN,URINE 0.2 mg/dL (0.2 mg/dL)
--- NOTE | 2020-10-10 13:00 | NUR ---
Pt appetite poor. States she is tired and weak. Started on new ABT. C/O nausea. Zofran given.
[2020-10-10] MEDS ORDERED: DEXAMETHASONE SOD PHOS 4 MG/ML VIAL. IVP SCH (14:00)
--- NOTE | 2020-10-10 15:30 | NUR ---
Pt temp 101.4. Tylenol given. IV positional and bleeding at site. IV removed with significant bleeding. Gauze and coban applied. Iv restarted in L hand. Spoke with Pt dtr and was updated on pt condition. Pt asked this nurse to update Her significant other Matthew. Unable to contact. Dtr stated she would update him.
[2020-10-10 15:45] VITALS: BP 140/83
--- NOTE | 2020-10-10 16:30 | NUR ---
Temp down to 100.5. Pt resting quietly in bed.
--- NOTE | 2020-10-10 17:27 | PDOC2 ---
CONSULT DOS: DATE: 10/10/20 TIME: 17:21 Reason for Consult: Atrial fibrillation, chest pain Referring Physician: Dr. Rider Chief Complaint Chest pain and shortness of breath Source: Chart review, Patient Problem List Problems Medical Problems: (1) Chest discomfort Status: Acute (2) Chest pain, rule out acute myocardial infarction Status: Acute (3) History of atrial fibrillation Status: Acute History of Present Illness The patient is a 70-year-old female who was admitted from the emergency room with 5 to 6 days of increasing shortness of breath and chest pressure. Her initial EKG showed no acute cardiopulmonary processes. Her EKG showed rate controlled atrial fibrillation with no acute ischemic changes. Troponins have been normal x2. The patient is feeling somewhat better today. She has a history of atrial fibrillation treated with sotalol and Eliquis. She has a additional history of hypertension, probable diabetes and gastroesophageal reflux disease. Cardiovascular: AFIB, HTN GI: GERD Endocrine: Diabetes Past Surgical History: Appendectomy, Hysterectomy Family History: Heart Disease Smoke: No Current Medications Current Medications Aspirin (Aspirin Chewable) 324 mg 1X ONCE PO Last administered on 10/09/20at 17:37; Start 10/09/20 at 17:00; Stop 10/09/20 at 17:02; Status DC Ondansetron HCl (Zofran) 4 mg PRN Q4HRS PRN IVP NAUSEA/VOMITING Last administered on 10/10/20at 02:52; Start 10/09/20 at 19:30; Stop 10/10/20 at 10:27; Status DC Acetaminophen (Tylenol) 650 mg PRN Q4HRS PRN PO FEVER > 100.3'F Last administered on 10/10/20at 02:52; Start 10/09/20 at 19:30; Stop 10/10/20 at 19:29 Albuterol/ Ipratropium (Duoneb) 3 ml RTQID NEB ; Start 10/09/20 at 20:00; Stop 10/10/20 at 09:34; Status DC Apixaban (Eliquis) 5 mg BID PO Last administered on 10/10/20at 08:23; Start 10/09/20 at 21:00; Stop 10/10/20 at 09:52; Status DC Aspirin (Aspirin Enteric Coated) 81 mg DAILY PO Last administered on 10/10/20at 08:23; Start 10/10/20 at 09:00; Stop 10/10/20 at 09:52; Status DC Lactated Ringer's 1,000 ml @ 160 mls/hr Q6H15M IV Last administered on 10/10/20at 16:06; Start 10/09/20 at 19:30 Alprazolam (Xanax) 0.25 mg PRN TID PRN PO ANXIETY Last administered on 10/09/20at 23:47; Start 10/09/20 at 23:15 Pantoprazole Sodium (Protonix) 40 mg DAILYAC PO Last administered on 10/10/20at 08:23; Start 10/10/20 at 07:30 Sotalol HCl (Betapace) 120 mg BID PO Last administered on 10/09/20at 23:47; Start 10/09/20 at 23:30 Influenza Virus Vaccine Quadrival (Fluzone Quad 3360-9905 Syringe) 0.5 ml ONCE ONCE VAX IM ; Start 10/12/20 at 09:00; Stop 10/12/20 at 09:01; Status UNV Apixaban (Eliquis) 5 mg BID PO ; Start 10/10/20 at 09:00; Status UNV Azithromycin (Zithromax) 250 mg DAILY PO ; Start 10/11/20 at 09:00 Azithromycin (Zithromax) 250 mg 1X ONCE PO ; Start 10/10/20 at 09:45; Stop 10/10/20 at 09:46; Status DC Dexamethasone Sodium Phosphate (Decadron) 4 mg Q8HRS IVP Last administered on 10/10/20at 14:00; Start 10/10/20 at 14:00; Stop 10/10/20 at 14:56; Status DC Albuterol/ Ipratropium (Combivent Respimat 20-100 Mcg) 1 puff RTQID INH Last administered on 10/10/20at 12:00; Start 10/10/20 at 10:00 Enoxaparin Sodium (Lovenox 40mg Syringe) 40 mg Q24H SQ ; Start 10/10/20 at 10:00; Status Cancel Ondansetron HCl (Zofran Odt) 4 mg PRN Q8HRS PRN PO NAUSEA/VOMITING Last administered on 10/10/20at 12:39; Start 10/10/20 at 10:00 Ceftriaxone Sodium 1 gm/ Sodium Chloride 50 ml @ 100 mls/hr Q24H IV Last administered on 10/10/20at 10:00; Start 10/10/20 at 10:00 Levofloxacin/ Dextrose (Levaquin Per Pharmacy) 1 each PRN DAILY PRN MC SEE COMMENTS; Start 10/10/20 at 10:00 Zolpidem Tartrate (Ambien) 5 mg PRN QHS PRN PO INSOMNIA; Start 10/10/20 at 21:00 Info (Non-Icu Electrolyte Protocol) 1 ea CONT PRN PRN MC PER PROTOCOL; Start 10/10/20 at 10:00 Levofloxacin/ Dextrose 100 ml @ 100 mls/hr Q24H IV Last administered on 10/10/20at 11:30; Start 10/10/20 at 11:30 Enoxaparin Sodium (Lovenox 40mg Syringe) 40 mg Q24H SQ ; Start 10/10/20 at 21:00; Status Cancel Enoxaparin Sodium (Lovenox 40mg Syringe) 40 mg 1X ONCE SQ Last administered on 10/10/20at 11:15; Start 10/10/20 at 11:15; Stop 10/10/20 at 11:16; Status DC Enoxaparin Sodium (Lovenox 60mg Syringe) 50 mg Q24H SQ ; Start 10/11/20 at 11:30 Dexamethasone (Decadron) 4 mg TID PO ; Start 10/10/20 at 21:00 Active Scripts Active Reported Eliquis (Apixaban) 5 Mg Tablet 5 Mg PO BID Sotalol (Sotalol Hcl) 120 Mg Tablet 1 Tab PO BID Xanax (Alprazolam) 0.25 Mg Tablet 1 Tab PO TID PRN Last dose: Next dose: Prilosec Otc (Omeprazole Magnesium) 20 Mg Tablet.dr 1 Tab PO DAILY Last dose: Today at 0900 Next dose: Tomorrow at 0900 Indication: Heartburn Allergies: Coded Allergies: No Known Drug Allergies (Unverified , 10/09/20) General: YES: Fatigue Respiratory: YES: Shortness of breath Cardiovascular: yes: Chest Pain General: mild distress HEENT: Atraumatic Lungs: Clear to auscultation Heart: Other (Irregularly irregular rhythm) Abdomen: Normal bowel sounds VITALS Vital Signs Date Time Temp Pulse Resp B/P (MAP) Pulse Ox O2 Delivery O2 Flow Rate FiO2 10/10/20 15:45 101.4 101 24 140/83 (102) 91 Room Air Labs Laboratory Tests Test 10/09/20 17:25 10/09/20 21:40 10/09/20 21:50 10/10/20 05:37 White Blood Count 4.5 x10^3/uL (4.0-11.0) 3.4 x10^3/uL (4.0-11.0) Red Blood Count 5.66 x10^6/uL (3.50-5.40) 5.01 x10^6/uL (3.50-5.40) Hemoglobin 16.6 g/dL (12.0-15.5) 14.8 g/dL (12.0-15.5) Hematocrit 49.3 % (36.0-47.0) 43.4 % (36.0-47.0) Mean Corpuscular Volume 87 fL (79-100) 87 fL (79-100) Mean Corpuscular Hemoglobin 29 pg (25-35) 30 pg (25-35) Mean Corpuscular Hemoglobin Concent 34 g/dL (31-37) 34 g/dL (31-37) Red Cell Distribution Width 13.4 % (11.5-14.5) 13.3 % (11.5-14.5) Platelet Count 123 x10^3/uL (140-400) 101 x10^3/uL (140-400) Neutrophils (%) (Auto) 63 % (31-73) 62 % (31-73) Lymphocytes (%) (Auto) 28 % (24-48) 29 % (24-48) Monocytes (%) (Auto) 9 % (0-9) 9 % (0-9) Eosinophils (%) (Auto) 0 % (0-3) 0 % (0-3) Basophils (%) (Auto) 1 % (0-3) 1 % (0-3) Neutrophils # (Auto) 2.8 x10^3uL (1.8-7.7) 2.1 x10^3uL (1.8-7.7) Lymphocytes # (Auto) 1.2 x10^3/uL (1.0-4.8) 1.0 x10^3/uL (1.0-4.8) Monocytes # (Auto) 0.4 x10^3/uL (0.0-1.1) 0.3 x10^3/uL (0.0-1.1) Eosinophils # (Auto) 0.0 x10^3/uL (0.0-0.7) 0.0 x10^3/uL (0.0-0.7) Basophils # (Auto) 0.0 x10^3/uL (0.0-0.2) 0.0 x10^3/uL (0.0-0.2) Sodium Level 136 mmol/L (136-145) 139 mmol/L (136-145) Potassium Level 3.6 mmol/L (3.5-5.1) 3.3 mmol/L (3.5-5.1) Chloride Level 100 mmol/L (98-107) 103 mmol/L (98-107) Carbon Dioxide Level 21 mmol/L (21-32) 25 mmol/L (21-32) Anion Gap 15 (6-14) 11 (6-14) Blood Urea Nitrogen 16 mg/dL (7-20) 15 mg/dL (7-20) Creatinine 0.8 mg/dL (0.6-1.0) 0.8 mg/dL (0.6-1.0) Estimated GFR (Cockcroft-Gault) 70.5 70.5 BUN/Creatinine Ratio 20 (6-20) Glucose Level 120 mg/dL (70-99) 98 mg/dL (70-99) Calcium Level 8.6 mg/dL (8.5-10.1) 7.7 mg/dL (8.5-10.1) Total Bilirubin 0.7 mg/dL (0.2-1.0) Aspartate Amino Transf (AST/SGOT) 33 U/L (15-37) Alanine Aminotransferase (ALT/SGPT) 31 U/L (14-59) Alkaline Phosphatase 110 U/L (46-116) Troponin I Quantitative < 0.017 ng/mL (0-0.055) < 0.017 ng/mL (0-0.055) Total Protein 7.4 g/dL (6.4-8.2) Albumin 3.5 g/dL (3.4-5.0) Albumin/Globulin Ratio 0.9 (1.0-1.7) Triglycerides Level 134 mg/dL (0-150) Cholesterol Level 195 mg/dL (0-200) LDL Cholesterol, Calculated 119 mg/dL (0-100) VLDL Cholesterol, Calculated 26 mg/dL (0-40) Non-HDL Cholesterol Calculated 145 mg/dL (0-129) HDL Cholesterol 50 mg/dL (40-60) Cholesterol/HDL Ratio 3.0 Glucose (Fingerstick) 101 mg/dL (70-99) Test 10/10/20 11:10 Urine Collection Type Void Urine Color Yellow Urine Clarity Clear Urine pH 5.0 Urine Specific [place] 1.020 Urine Protein Neg (NEG-TRACE) Urine Glucose (UA) Neg mg/dL (NEG) Urine Ketones (Stick) 40 mg/dL (NEG) Urine Blood Trace (NEG) Urine Nitrite Neg (NEG) Urine Bilirubin Small (NEG) Urine Urobilinogen Dipstick 0.2 mg/dL (0.2 mg/dL) Urine Leukocyte Esterase Neg (NEG) Urine RBC Occ /HPF (0-2) Urine WBC 1-4 /HPF (0-4) Urine Squamous Epithelial Cells Many /LPF Urine Transitional Epithelial Cells Occ /LPF Urine Bacteria 0 /HPF (0-FEW) Urine Hyaline Casts Few /HPF Images Chest x-ray shows no acute cardiopulmonary processes. Assessment/Plan 1. Chest discomfort. Patient is feeling better today. EKG shows no acute ischemic changes. Troponin has been negative x2. We will continue present medications. With complete rule out protocol. Increase activities. Outpatient follow-up. 2. Atrial fibrillation. Rate controlled. On sotalol and Eliquis. Continue present treatment. 3. Hypertension. Under reasonable control. Continue present treatment. 4. Gastroesophageal reflux disease. Treatment as above. 5. Diabetes mellitus. As per the primary service. 6. Hyperlipidemia. LDL of 119 with HDL of 50. Continue present treatment. Follow-up as above. SCOOTER JUNIOR MD Oct 10, 2020 17:27
--- NOTE | 2020-10-10 19:00 | HP ---
ADMIT DATE: 10/09/2020 HISTORY OF PRESENT ILLNESS: A 70-year-old female came in with increased shortness of breath, chest pressure for the last week, increasing substernal pressure that radiates to her shoulders. The patient has history of atrial fibrillation and on sotalol, anticoagulants of Eliquis. The patient also notes no recent travel or exposure to COVID-19. No hemoptysis, abdominal pain, nausea or vomiting. PAST MEDICAL HISTORY: Includes severe bilateral hearing loss; abnormal aorta; leaky valve, on Eliquis; hypercholesterolemia; gastric ulcers; obesity; reproductive disorders; hysterectomy; psychiatric problem with anxiety and pneumococcal vaccination. SURGERIES: Appendectomy, rectum distention repair and sleep difficulties. FAMILY HISTORY: Positive for diabetes, cancer of the trachea and bronchus, depression, cardiovascular disease and cancer. ALLERGIES: No known allergies. MEDICATIONS: Eliquis 5, sotalol 120 mg b.i.d., Xanax 0.25 and Prilosec [id number]. SOCIAL HISTORY: Denies smoking, alcohol or drug use and is a full code. REVIEW OF SYSTEMS: As indicated, the patient has increased shortness of breath, fever, chills, some chest discomfort. No nausea or vomiting. PHYSICAL EXAMINATION: GENERAL: Pleasant white female. VITAL SIGNS: Blood pressure 140/83, respiratory rate 24, pulse 101, temperature 101.4. HEENT: The patient's head was atraumatic, normocephalic. Eyes: PERRLA without jaundice. The mouth and throat were normal. NECK: Supple, no JVD or thyromegaly. LUNGS: Diminished, but clear. CARDIOVASCULAR: Irregularly irregular rhythm. ABDOMEN: Soft, nontender, no rebound or guarding. Positive bowel sounds, no hepatosplenomegaly was noted. EXTREMITIES: No clubbing, cyanosis, nor edema. NEUROLOGIC: The patient was alert and oriented x 3. LABORATORY DATA: The patient's white count is down to 3.4, hemoglobin 14 and hematocrit 43. The patient's sodium and potassium 136 and 3.6. BUN and creatinine of 16 and 0.8, GFR 70. Urine unremarkable. Chest x-ray unremarkable. IMPRESSION: Sepsis, unknown etiology; hyperglycemia and chronic atrial fibrillation, on sotalol and Eliquis. RECOMMENDATION: Continue to monitor on that and make further evaluation on her as indicated, but for now continue on IV antibiotic therapy. LADAN RAMIREZ MD DR: MARTIN/alexi JOB#: [id number] / [id number]
--- NOTE | 2020-10-10 19:25 | RAD ---
CT THORAX WO INDICATION: fever of unkinow orign / Spl. Instructions: / History: . COMPARISON STUDY: None. TECHNIQUE: Unenhanced axial images were obtained through the lungs and upper abdomen. Coronal and sa gittal multiplanar reconstructions were also obtained. RS compliance statement: One or more of the following individualized dose reduction techniques were utilized for this examinat ion: 1. Automated exposure control 2. Adjustment of the mA and/or kV according to patient size 3. Use of iterative reconstruction technique FINDINGS: Lungs and Airways: Patchy bilateral groundglass opacities. Normal central airways. Pleura: The pleural spaces are normal. Heart and Mediastinum: The visualized thyroid gland is normal in size and attenuation. No axillary or supraclavicular lymphadenopathy. No mediastinal, hilar or retrocrural lymphadenopathy. Normal cardia c size. No pericardial effusion. Coronary artery atherosclerotic disease. The great vessels of the th orax are normal. Small hiatal hernia Abdomen: Splenomegaly. Bones and Soft Tissues: Degenerative changes of the spine. IMPRESSION: Patchy bilateral groundglass opacities, likely multifocal infection or edema Electronically signed by: Liu Arugello MD (10/10/2020 7:22 PM) [facility]
[2020-10-10 20:43] VITALS: BP 100/68
[2020-10-10] MEDS: ALPRAZolam 0.25 MG TABLET PO PRN (22:06)
[2020-10-10] MEDS: DEXAMETHASONE 4 MG TABLET PO SCH (22:07)
[2020-10-10 23:02] VITALS: BP 99/62
[2020-10-11 06:06] VITALS: BP 132/70
[2020-10-11] MEDS ORDERED: ELECTROLYTE (NON-ICU) PROTOCOL. MC PRN ×2 (07:30→14:30)
[2020-10-11] MEDS: IPRATROPIUM/ALBUTEROL 20/100mcg/INH INHALER. INH SCH ×4 (08:45→19:52)
[2020-10-11] MEDS: AZITHROMYCIN 250 MG TABLET. PO SCH (08:47)
[2020-10-11] MEDS: DEXAMETHASONE 4 MG TABLET PO SCH ×3 (08:47→19:52)
[2020-10-11] MEDS: ALPRAZolam 0.25 MG TABLET PO PRN ×2 (08:47→19:52)
[2020-10-11] MEDS: SOTALOL 80 MG TABLET. PO SCH ×2 (08:47→21:40)
[2020-10-11] MEDS: PANTOPRAZOLE 40 MG TABLET. PO SCH (08:47)
[2020-10-11] MEDS: LACTOBACILLUS RHAMNOSUS GG 1 CAPSULE. PO SCH ×2 (08:48→19:52)
[2020-10-11] MEDS: IV RINGERS SOLUTION,LACTATED 1,000 ML IV SCH ×4 (08:49→22:00)
[2020-10-11 10:54] LABS: BASO % 0 % (0-3); EOS % 0 % (0-3); HEMATOCRIT 43.7 % (36.0-47.0); HEMOGLOBIN 14.8 g/dL (12.0-15.5); LYMPH # 0.6 x10^3/uL (1.0-4.8); LYMPH % 24 % (24-48); MEAN CORPUSCULAR HEMOGLOBIN 30 pg (25-35); MEAN CORPUSCULAR HGB CONC 34 g/dL (31-37); MEAN CORPUSCULAR VOLUME 88 fL (79-100); MONO # 0.1 x10^3/uL (0.0-1.1); MONO % 4 % (0-9); NEUT # 1.8 x10^3uL (1.8-7.7); NEUT % 71 % (31-73); PLATELET COUNT 106 x10^3/uL (140-400); RED CELL DISTRIBUTION WIDTH 13.4 % (11.5-14.5); WHITE BLOOD COUNT 2.6 x10^3/uL (4.0-11.0)
[2020-10-11 12:20] VITALS: BP 151/82
[2020-10-11] MEDS: ENOXAPARIN ** NOTE DOSE ** SYRINGE SQ SCH (12:35)
[2020-10-11 14:42] VITALS: BP 135/69
[2020-10-11 19:35] VITALS: BP 117/75
--- NOTE | 2020-10-11 19:47 | PN ---
DATE: 10/11/2020 SUBJECTIVE: A 70-year-old female in with pneumonia and leukopenia. The patient also was having chest pain and cardiac enzymes have been basically unremarkable. She had a history of atrial fibrillation and been on sotalol that has been adjusted because of her low blood pressure at one time; however, that blood pressure has come up. Also, her heart rate is under good control. The patient also has been noted to have a neutropenia, leukopenia with possible indications of sepsis, even the lactic acid itself was not significant. Her CTA of the chest did demonstrate the fact that she does have multiple infiltrative processes and as a result of this is continued on IV antibiotic therapy. The patient otherwise seems to be resting fairly comfortably. OBJECTIVE: VITAL SIGNS: Her blood pressure is at 130/70, respiratory rate 18, pulse 70, afebrile, room air at 93%. GENERAL: The patient feels like she is breathing a little better. The patient's oxygen saturation has come up. GENERAL: The patient is alert and oriented, little bit more energy in her speech. LUNGS: Diminished, but basically clear. CARDIOVASCULAR: Regular sinus rhythm, S1, S2. ABDOMEN: Soft, nontender. EXTREMITIES: No clubbing, cyanosis, nor edema. IMPRESSION: Therefore, sepsis, pneumonia of unknown etiology, COVID-19 is still pending, history of atrial fibrillation, history of chest pain. The patient continues on IV antibiotic therapy and will continue to be monitored carefully on these issues and adjusted accordingly as well as monitoring her blood pressure and her low white count. LADAN RAMIREZ MD DR: MARTIN/alexi JOB#: [id number] / [id number]
[2020-10-11] MEDS: ZOLPIDEM 5 MG TABLET. PO PRN (19:52)
[2020-10-11 22:28] VITALS: BP 127/74
[2020-10-12] MEDS: IV RINGERS SOLUTION,LACTATED 1,000 ML IV SCH ×4 (03:45→22:30)
--- NOTE | 2020-10-12 05:21 | NUR ---
Pt has concerns with COVID disease process. She is teary and expresses worry about herself and her significant other. Processes, symptoms, and medications discussed with patient. Pt requested prayer. Prayed with patient and gave her a bible upon request. Pt states she felt better after reading it. Pt requested this nurse call her daughter and give her updates. Daughter called about 2200 and her questions were answered. Pt slept through the night without complaint. Will continue to monitor.
[2020-10-12 07:00] VITALS: BP 129/96
[2020-10-12] MEDS ORDERED: FLU VACC QS 2020-21(6MOS+)/PF 0.5 ML SYRINGE. VAX IM ONE ×2 (07:00→09:00)
[2020-10-12] MEDS ORDERED: POTASSIUM CHLORIDE 20 MEQ TABLET.ER. PO ONE (07:00)
[2020-10-12 07:26] LABS: CREATININE 0.6 mg/dL (0.6-1.0); GFR 98.3; POTASSIUM 3.5 mmol/L (3.5-5.1)
[2020-10-12] MEDS: IPRATROPIUM/ALBUTEROL 20/100mcg/INH INHALER. INH SCH ×4 (08:00→20:33)
[2020-10-12] MEDS: SOTALOL 80 MG TABLET. PO SCH ×2 (08:09→20:33)
[2020-10-12] MEDS: AZITHROMYCIN 250 MG TABLET. PO SCH (08:09)
[2020-10-12] MEDS: ALPRAZolam 0.25 MG TABLET PO PRN ×2 (08:09→20:33)
[2020-10-12] MEDS: DEXAMETHASONE 4 MG TABLET PO SCH ×3 (08:09→20:34)
[2020-10-12] MEDS: PANTOPRAZOLE 40 MG TABLET. PO SCH (08:09)
[2020-10-12] MEDS: LACTOBACILLUS RHAMNOSUS GG 1 CAPSULE. PO SCH ×2 (08:09→20:33)
[2020-10-12] MEDS ORDERED: guaiFENesin DM 200MG/20MG 10 ML SYRUP PO ONE (11:00)
[2020-10-12] MEDS: ENOXAPARIN ** NOTE DOSE ** SYRINGE SQ SCH (11:10)
[2020-10-12 11:18] VITALS: BP 119/80
[2020-10-12 14:27] LABS: BASO # 0.1 x10^3/uL (0.0-0.2); BASO % 1 % (0-3); EOS % 0 % (0-3); HEMOGLOBIN 14.5 g/dL (12.0-15.5); LYMPH # 0.9 x10^3/uL (1.0-4.8); LYMPH % 13 % (24-48); MEAN CORPUSCULAR HEMOGLOBIN 29 pg (25-35); MEAN CORPUSCULAR HGB CONC 34 g/dL (31-37); MEAN CORPUSCULAR VOLUME 87 fL (79-100); MONO # 0.3 x10^3/uL (0.0-1.1); MONO % 5 % (0-9); NEUT # 5.4 x10^3uL (1.8-7.7); NEUT % 81 % (31-73); PLATELET COUNT 123 x10^3/uL (140-400); RED BLOOD COUNT 4.93 x10^6/uL (3.50-5.40); RED CELL DISTRIBUTION WIDTH 13.5 % (11.5-14.5); WHITE BLOOD COUNT 6.7 x10^3/uL (4.0-11.0)
[2020-10-12 15:25] VITALS: BP 145/80
--- NOTE | 2020-10-12 17:19 | PN ---
DATE: SUBJECTIVE: This is a 70-year-old female who just recently diagnosed with COVID-19 pneumonia. The patient had been extremely short of breath and qualifies for sepsis diagnosis. She was also hypotensive. She also had temperatures up to 101.1 as noted, very labile blood pressure drops and needing oxygen. The patient is deaf and so had to use either writing or a modified sign language to discuss things with her. Otherwise, is a very pleasant lady. PHYSICAL EXAMINATION: GENERAL: The patient is alert and oriented and through sign language basically is doing fairly well. VITAL SIGNS: Blood pressure presently 120/80, respiratory rate 20, pulse 90-60, temperature 96.8 2, 2 liters at 93. LUNGS: Diminished, improved from where they were. We will continue with breathing treatments as well as aggressive antibiotic therapy with that and Decadron and azithromycin. Blood sugars are being monitored. IMPRESSION: Sepsis, pneumonia, COVID-19, acute on top chronic respiratory distress, chest pain, history of atrial fibrillation, coronary artery disease, hyperglycemia, leukopenia, thrombocytopenia could be related to the COVID-19. PLAN: The patient, otherwise, to continue on IV antibiotic therapy protocols per se and monitor her cardiac enzymes, have been negative. LADAN RAMIREZ MD DR: MARTIN/alexi JOB#: [id number] / [id number]
[2020-10-12 19:20] VITALS: BP 165/77
[2020-10-12] MEDS: ZOLPIDEM 5 MG TABLET. PO PRN (20:34)
[2020-10-12] MEDS: ACETAMINOPHEN 500 MG TABLET PO PRN (21:16)
[2020-10-12] MEDS: guaiFENesin DM 200MG/20MG 10 ML SYRUP PO PRN (21:16)
[2020-10-12 23:39] VITALS: BP 148/92
[2020-10-13] MEDS: IV RINGERS SOLUTION,LACTATED 1,000 ML IV SCH ×4 (05:09→20:56)
[2020-10-13 05:26] VITALS: BP 133/79
[2020-10-13 06:32] LABS: BASO % 1 % (0-3); EOS % 0 % (0-3); HEMATOCRIT 42.6 % (36.0-47.0); HEMOGLOBIN 14.4 g/dL (12.0-15.5); LYMPH # 0.7 x10^3/uL (1.0-4.8); LYMPH % 15 % (24-48); MEAN CORPUSCULAR HEMOGLOBIN 29 pg (25-35); MEAN CORPUSCULAR HGB CONC 34 g/dL (31-37); MEAN CORPUSCULAR VOLUME 87 fL (79-100); MONO # 0.2 x10^3/uL (0.0-1.1); MONO % 4 % (0-9); NEUT # 3.9 x10^3uL (1.8-7.7); NEUT % 81 % (31-73); PLATELET COUNT 98 x10^3/uL (140-400); RED CELL DISTRIBUTION WIDTH 13.4 % (11.5-14.5); WHITE BLOOD COUNT 4.8 x10^3/uL (4.0-11.0)
[2020-10-13 06:37] LABS: CALCIUM 7.4 mg/dL (8.5-10.1); CREATININE 0.7 mg/dL (0.6-1.0); GFR 82.3; POTASSIUM 3.3 mmol/L (3.5-5.1)
[2020-10-13] MEDS ORDERED: POTASSIUM CHLORIDE 20 MEQ TABLET.ER. PO ONE (07:45)
--- NOTE | 2020-10-13 08:01 | PDOC ---
CARDIO Progress Notes Date & Time Date of Service DATE: 10/13/20 TIME: 07:55 Time of Evaluation 07:55 Subjective Notes Not more SOA. No chest pain, palpitations, dizziness Vitals Vitals Vital Signs Date Time Temp Pulse Resp B/P (MAP) Pulse Ox O2 Delivery O2 Flow Rate FiO2 10/13/20 05:26 98.9 99 18 133/79 (97) 94 Nasal Cannula 2.0 Weight Weight [ ] Input and Output I.O. Intake and Output 10/13/20 07:00 Intake Total 250 ml Balance 250 ml Intake Oral 250 ml # Voids 4 Laboratory Labs Laboratory Tests Test 10/11/20 10:25 10/12/20 06:50 10/12/20 14:15 10/13/20 06:15 White Blood Count 2.6 x10^3/uL (4.0-11.0) 6.7 x10^3/uL (4.0-11.0) 4.8 x10^3/uL (4.0-11.0) Red Blood Count 5.00 x10^6/uL (3.50-5.40) 4.93 x10^6/uL (3.50-5.40) 4.90 x10^6/uL (3.50-5.40) Hemoglobin 14.8 g/dL (12.0-15.5) 14.5 g/dL (12.0-15.5) 14.4 g/dL (12.0-15.5) Hematocrit 43.7 % (36.0-47.0) 43.0 % (36.0-47.0) 42.6 % (36.0-47.0) Mean Corpuscular Volume 88 fL (79-100) 87 fL (79-100) 87 fL (79-100) Mean Corpuscular Hemoglobin 30 pg (25-35) 29 pg (25-35) 29 pg (25-35) Mean Corpuscular Hemoglobin Concent 34 g/dL (31-37) 34 g/dL (31-37) 34 g/dL (31-37) Red Cell Distribution Width 13.4 % (11.5-14.5) 13.5 % (11.5-14.5) 13.4 % (11.5-14.5) Platelet Count 106 x10^3/uL (140-400) 123 x10^3/uL (140-400) 98 x10^3/uL (140-400) Neutrophils (%) (Auto) 71 % (31-73) 81 % (31-73) 81 % (31-73) Lymphocytes (%) (Auto) 24 % (24-48) 13 % (24-48) 15 % (24-48) Monocytes (%) (Auto) 4 % (0-9) 5 % (0-9) 4 % (0-9) Eosinophils (%) (Auto) 0 % (0-3) 0 % (0-3) 0 % (0-3) Basophils (%) (Auto) 0 % (0-3) 1 % (0-3) 1 % (0-3) Neutrophils # (Auto) 1.8 x10^3uL (1.8-7.7) 5.4 x10^3uL (1.8-7.7) 3.9 x10^3uL (1.8-7.7) Lymphocytes # (Auto) 0.6 x10^3/uL (1.0-4.8) 0.9 x10^3/uL (1.0-4.8) 0.7 x10^3/uL (1.0-4.8) Monocytes # (Auto) 0.1 x10^3/uL (0.0-1.1) 0.3 x10^3/uL (0.0-1.1) 0.2 x10^3/uL (0.0-1.1) Eosinophils # (Auto) 0.0 x10^3/uL (0.0-0.7) 0.0 x10^3/uL (0.0-0.7) 0.0 x10^3/uL (0.0-0.7) Basophils # (Auto) 0.0 x10^3/uL (0.0-0.2) 0.1 x10^3/uL (0.0-0.2) 0.0 x10^3/uL (0.0-0.2) Sodium Level 143 mmol/L (136-145) 140 mmol/L (136-145) Potassium Level 3.5 mmol/L (3.5-5.1) 3.3 mmol/L (3.5-5.1) Chloride Level 105 mmol/L (98-107) 103 mmol/L (98-107) Carbon Dioxide Level 28 mmol/L (21-32) 29 mmol/L (21-32) Anion Gap 10 (6-14) 8 (6-14) Blood Urea Nitrogen 13 mg/dL (7-20) 11 mg/dL (7-20) Creatinine 0.6 mg/dL (0.6-1.0) 0.7 mg/dL (0.6-1.0) Estimated GFR (Cockcroft-Gault) 98.3 82.3 Glucose Level 126 mg/dL (70-99) 127 mg/dL (70-99) Calcium Level 8.0 mg/dL (8.5-10.1) 7.4 mg/dL (8.5-10.1) Microbiology Micro Microbiology 10/10/20 Blood Culture - Preliminary, Resulted NO GROWTH AFTER 2 DAYS... Physical Exams HEENT: Neck Supple W Full Motion Chest: Symmetric Lungs: Other (on RA) Heart: irregularly irregular (AFIB, rate mostly controlled ) Abdomen: Soft N/T Extremities: No Edema Neurology: alert, oriented, follow commands Assessment Assessment 1. Acute respiratory failure in setting of COVID PNA. Febrile 2. Chest pain, atypical. AMI ruled out. EKG shows no acute ischemic changes. 2. PAFIB; presently AFIB. rate mostly controlled. On Eliquis at home for stroke prophylaxis 3. Hypertension. Under reasonable control. Continue present treatment. 4. GERD 5. Diabetes, II 6. Hyperlipidemia; LDL 119 7. Thrombocytopenia Recommendations Continue Sotalol for rhythm/rate control Resume Eliquis upon discharge Outpatient echo when recovered from COVID Ongoing lung optimization, treatment of COVID as per PCP Follow up with primary desk pens assembler, Dr. Trejo upon discharge VINCE BESS APRN Oct 13, 2020 08:01
[2020-10-13] MEDS: DEXAMETHASONE 4 MG TABLET PO SCH ×3 (08:27→20:46)
[2020-10-13] MEDS: PANTOPRAZOLE 40 MG TABLET. PO SCH (08:27)
[2020-10-13] MEDS: LACTOBACILLUS RHAMNOSUS GG 1 CAPSULE. PO SCH ×2 (08:28→20:46)
[2020-10-13] MEDS: AZITHROMYCIN 250 MG TABLET. PO SCH (08:28)
[2020-10-13] MEDS: SOTALOL 80 MG TABLET. PO SCH ×2 (08:29→20:46)
[2020-10-13] MEDS: ENOXAPARIN ** NOTE DOSE ** SYRINGE SQ SCH (08:30)
[2020-10-13] MEDS: IPRATROPIUM/ALBUTEROL 20/100mcg/INH INHALER. INH SCH ×4 (08:30→20:46)
[2020-10-13] MEDS: ALPRAZolam 0.25 MG TABLET PO PRN (08:49)
[2020-10-13 10:46] VITALS: BP 144/98
[2020-10-13] MEDS: ACETAMINOPHEN 500 MG TABLET PO PRN (10:46)
[2020-10-13] MEDS: guaiFENesin DM 200MG/20MG 10 ML SYRUP PO PRN ×2 (10:46→20:45)
[2020-10-13 15:16] VITALS: BP 116/81
--- NOTE | 2020-10-13 19:09 | PN ---
DATE: SUBJECTIVE: A 70-year-old female in with COVID-19 pneumonia. She is resting fairly comfortably, making fairly good progress, not having any further chest pain. The patient seems to be doing fairly well. OBJECTIVE: VITAL SIGNS: Blood pressure 116/80, respiratory rate 20, pulse 90, afebrile. GENERAL: The patient is alert and oriented x 3. NEUROLOGIC: Speech fluent, spontaneous, appropriate. Cranial nerves 2-12 grossly intact. LUNGS: Diminished, but clearer than they have been. We will continue with IV antibiotic therapy and make further evaluation on her that is as indicated. Otherwise, the patient's lungs are diminished, but basically clear. CARDIOVASCULAR: Irregularly irregular rhythm. ABDOMEN: Soft, nontender, no rebound or guarding. Positive bowel sounds. EXTREMITIES: No clubbing, cyanosis, nor edema. IMPRESSION: Sepsis, pneumonia, COVID-19, acute on top of chronic respiratory distress, chest pain, history of atrial fibrillation, coronary artery disease, hyperglycemia, leukopenia. PLAN: Continue with present drug regimen there, presently afebrile, running temperature yesterday late evening. Continue on IV antibiotic therapy. IMPRESSION: Sepsis, COVID-19 pneumonia, chest pain, atypical, paroxysmal atrial fib, atrial fib, hypertension, GERD, type 2 diabetes, hard of hearing, hyperlipidemia, thrombocytopenia. LADAN RAMIREZ MD DR: MARTIN/alexi JOB#: [id number] / [id number]
[2020-10-13 19:10] VITALS: BP 119/85
[2020-10-13] MEDS: METOCLOPRAMIDE 5 MG TABLET PO SCH (20:46)
[2020-10-13] MEDS: ZOLPIDEM 5 MG TABLET. PO PRN (20:46)
[2020-10-13] MEDS: ATORVASTATIN CALCIUM 20 MG TABLET PO SCH (20:46)
[2020-10-13] MEDS: BENZONATATE 100 MG CAPSULE. PO SCH (20:46)
[2020-10-13 23:25] VITALS: BP 157/80
[2020-10-14] MEDS: IV RINGERS SOLUTION,LACTATED 1,000 ML IV SCH ×2 (02:40→07:24)
[2020-10-14 06:15] VITALS: BP 138/87
[2020-10-14] MEDS: PANTOPRAZOLE 40 MG TABLET. PO SCH (07:24)
[2020-10-14] MEDS: METOCLOPRAMIDE 5 MG TABLET PO SCH ×4 (07:24→19:56)
[2020-10-14] MEDS: IPRATROPIUM/ALBUTEROL 20/100mcg/INH INHALER. INH SCH ×4 (07:53→19:55)
[2020-10-14] MEDS: DEXAMETHASONE 4 MG TABLET PO SCH ×3 (07:58→19:56)
[2020-10-14] MEDS: SOTALOL 80 MG TABLET. PO SCH ×2 (07:58→19:57)
[2020-10-14] MEDS: ALPRAZolam 0.25 MG TABLET PO PRN (07:58)
[2020-10-14] MEDS: AZITHROMYCIN 250 MG TABLET. PO SCH (07:59)
[2020-10-14] MEDS: LACTOBACILLUS RHAMNOSUS GG 1 CAPSULE. PO SCH ×2 (07:59→19:56)
[2020-10-14] MEDS: BENZONATATE 100 MG CAPSULE. PO SCH ×3 (07:59→19:56)
[2020-10-14] MEDS: ENOXAPARIN ** NOTE DOSE ** SYRINGE SQ SCH (07:59)
--- NOTE | 2020-10-14 08:20 | PDOC ---
CARDIO Progress Notes Date & Time Date of Service DATE: 10/14/20 TIME: 08:16 Time of Evaluation 08:16 Subjective Notes not more SOA Vitals Vitals Vital Signs Date Time Temp Pulse Resp B/P (MAP) Pulse Ox O2 Delivery O2 Flow Rate FiO2 10/14/20 07:58 86 138/87 10/14/20 07:41 Room Air 10/14/20 06:15 97.8 18 94 2.0 Weight Weight [ ] Input and Output I.O. Intake and Output 10/14/20 07:00 Intake Total 1910 ml Balance 1910 ml Intake Oral 910 ml IV Total 1000 ml # Voids 7 Laboratory Labs Laboratory Tests Test 10/12/20 14:15 10/13/20 06:15 White Blood Count 6.7 x10^3/uL (4.0-11.0) 4.8 x10^3/uL (4.0-11.0) Red Blood Count 4.93 x10^6/uL (3.50-5.40) 4.90 x10^6/uL (3.50-5.40) Hemoglobin 14.5 g/dL (12.0-15.5) 14.4 g/dL (12.0-15.5) Hematocrit 43.0 % (36.0-47.0) 42.6 % (36.0-47.0) Mean Corpuscular Volume 87 fL (79-100) 87 fL (79-100) Mean Corpuscular Hemoglobin 29 pg (25-35) 29 pg (25-35) Mean Corpuscular Hemoglobin Concent 34 g/dL (31-37) 34 g/dL (31-37) Red Cell Distribution Width 13.5 % (11.5-14.5) 13.4 % (11.5-14.5) Platelet Count 123 x10^3/uL (140-400) 98 x10^3/uL (140-400) Neutrophils (%) (Auto) 81 % (31-73) 81 % (31-73) Lymphocytes (%) (Auto) 13 % (24-48) 15 % (24-48) Monocytes (%) (Auto) 5 % (0-9) 4 % (0-9) Eosinophils (%) (Auto) 0 % (0-3) 0 % (0-3) Basophils (%) (Auto) 1 % (0-3) 1 % (0-3) Neutrophils # (Auto) 5.4 x10^3uL (1.8-7.7) 3.9 x10^3uL (1.8-7.7) Lymphocytes # (Auto) 0.9 x10^3/uL (1.0-4.8) 0.7 x10^3/uL (1.0-4.8) Monocytes # (Auto) 0.3 x10^3/uL (0.0-1.1) 0.2 x10^3/uL (0.0-1.1) Eosinophils # (Auto) 0.0 x10^3/uL (0.0-0.7) 0.0 x10^3/uL (0.0-0.7) Basophils # (Auto) 0.1 x10^3/uL (0.0-0.2) 0.0 x10^3/uL (0.0-0.2) Sodium Level 140 mmol/L (136-145) Potassium Level 3.3 mmol/L (3.5-5.1) Chloride Level 103 mmol/L (98-107) Carbon Dioxide Level 29 mmol/L (21-32) Anion Gap 8 (6-14) Blood Urea Nitrogen 11 mg/dL (7-20) Creatinine 0.7 mg/dL (0.6-1.0) Estimated GFR (Cockcroft-Gault) 82.3 Glucose Level 127 mg/dL (70-99) Calcium Level 7.4 mg/dL (8.5-10.1) Thyroid Stimulating Hormone (TSH) 0.437 uIU/mL (0.358-3.740) Microbiology Micro Microbiology 10/10/20 Blood Culture - Preliminary, Resulted NO GROWTH AFTER 3 DAYS... Physical Exams HEENT: Neck Supple W Full Motion Chest: Symmetric Lungs: Other (on NC) Heart: irregularly irregular Abdomen: Other (non-distended) Extremities: No Edema Neurology: alert, oriented, follow commands Assessment Assessment 1. Acute respiratory failure in setting of COVID PNA. Febrile 2. Chest pain, atypical. AMI ruled out. EKG shows no acute ischemic changes. 2. PAFIB; presently AFIB. rate controlled. On Eliquis at home for stroke prophylaxis. [facility] 3. Hypertension. Under reasonable control. Continue present treatment. 4. GERD 5. Diabetes, II 6. Hyperlipidemia; LDL 119 7. Thrombocytopenia Recommendations Continue Sotalol for rhythm/rate control Resume Eliquis upon discharge Outpatient echo when recovered from COVID Ongoing lung optimization, treatment of PNA as per PCP Follow up with primary sound engineer, Dr. Trejo upon discharge VINCE BESS APRN Oct 14, 2020 08:20
[2020-10-14] MEDS ORDERED: FUROSEMIDE 20 MG/2 ML VIAL IVP ONE (10:15)
[2020-10-14 10:25] VITALS: BP 104/75
[2020-10-14] MEDS: guaiFENesin DM 200MG/20MG 10 ML SYRUP PO PRN ×2 (11:19→19:56)
[2020-10-14 14:57] VITALS: BP 133/83
[2020-10-14 19:00] VITALS: BP 129/86
--- NOTE | 2020-10-14 19:00 | PN ---
DATE: SUBJECTIVE: A 70-year-old female in with COVID-19 pneumonia, sepsis, patient is resting fairly comfortably, says she does not feel quite as good today she has been and she does not look quite as well she has been either. The patient otherwise is still receiving IV antibiotic therapy. Potassium was a little bit on the low side 3.3. OBJECTIVE: VITAL SIGNS: Blood pressure 130/80, respiratory rate 20, pulse 80, afebrile, oxygen saturation 94 on 1. GENERAL: Apparently ill-appearing. LUNGS: Diminished throughout, but basically clear. CARDIOVASCULAR: Irregularly irregular rhythm. ABDOMEN: Soft, nontender. EXTREMITIES: No clubbing, cyanosis or edema. NEUROLOGIC: Intact. LABORATORY DATA: As noted potassium 3.3. Blood sugars holding good as well as her hemoglobin and hematocrit, white count 4.8. IMPRESSION: Sepsis, pneumonia, COVID-19, acute respiratory failure, paroxysmal atrial fibrillation, atrial fib, controlled type 2 diabetes, hyperlipidemia, thrombocytopenia, leukopenia. PLAN: Continue with IV antibiotic therapy and make further evaluation on her as indicated. LADAN RAMIREZ MD DR: MARTIN/alexi JOB#: [id number] / [id number]
[2020-10-14] MEDS: ZOLPIDEM 5 MG TABLET. PO PRN (19:56)
[2020-10-14] MEDS: ATORVASTATIN CALCIUM 20 MG TABLET PO SCH (19:56)
--- NOTE | 2020-10-14 21:16 | NUR ---
Pt lying in bed awake at shift change. Pt A/O x4, calm and pleasant when approached but is very HABEMATOLEL. Pt denies pain when asked but c/o continued cough and PRN Robitussin administered as requested. Pt up ad asuncion with cane and able to make needs known. Pt remains afebrile at this time but requires O2 @1L per nasal cannula for oxygen desaturation on room air today. Pt currently resting quietly in bed. WCBARBI.
[2020-10-14 23:00] VITALS: BP 131/87
[2020-10-15 03:00] VITALS: BP 135/82
[2020-10-15] MEDS: ALPRAZolam 0.25 MG TABLET PO PRN (03:41)
[2020-10-15] MEDS: guaiFENesin DM 200MG/20MG 10 ML SYRUP PO PRN (03:41)
[2020-10-15] MEDS: IPRATROPIUM/ALBUTEROL 20/100mcg/INH INHALER. INH SCH ×2 (08:00→12:00)
[2020-10-15] MEDS ORDERED: CEFD300C PO (09:48)
[2020-10-15] MEDS ORDERED: DEXA4TAB63 PO (09:48)
[2020-10-15] MEDS ORDERED: AZIT250T6 PO (09:48)
[2020-10-15] MEDS ORDERED: FUROSEMIDE 20 MG/2 ML VIAL IVP ONE (10:00)
[2020-10-15] MEDS ORDERED: DEXAMETHASONE 4 MG TABLET PO SCH (10:00)
[2020-10-15] MEDS ORDERED: ELECTROLYTE (NON-ICU) PROTOCOL. MC PRN (10:00)
[2020-10-15] MEDS: SOTALOL 80 MG TABLET. PO SCH (10:02)
[2020-10-15] MEDS: METOCLOPRAMIDE 5 MG TABLET PO SCH ×2 (10:02→10:43)
[2020-10-15] MEDS: AZITHROMYCIN 250 MG TABLET. PO SCH (10:02)
[2020-10-15] MEDS: LACTOBACILLUS RHAMNOSUS GG 1 CAPSULE. PO SCH (10:02)
[2020-10-15] MEDS: BENZONATATE 100 MG CAPSULE. PO SCH (10:02)
[2020-10-15] MEDS: PANTOPRAZOLE 40 MG TABLET. PO SCH (10:02)
[2020-10-15 10:11] VITALS: BP 106/76
[2020-10-15] MEDS: ENOXAPARIN ** NOTE DOSE ** SYRINGE SQ SCH (10:43)
--- NOTE | 2020-10-15 10:50 | DISCH ---
HOME HEALTH DISCHARGE/MEDS DISCHARGE INFORMATION: Discharge Date: Oct 15, 2020 Final Diagnosis: Problems Medical Problems: (1) Chest discomfort Status: Acute (2) Chest pain, rule out acute myocardial infarction Status: Acute (3) History of atrial fibrillation Status: Acute Condition on Discharge: Stable CODE STATUS: Code Status: Full HOME HEALTH: Face to Face: I certify this patient is under my care and that I, or a nurse practitioner or physician's insurance assistant working with me, had a face to face encounter that meets the physician face to face encounter requirements with this patient on 10/15/2020. Medical Condition(s): DM (atrial fibrilation), Pneumonia, Other (COVID positive) Intermediate For: Assess Cardiopulm Status, Assess & Educate Safety, Assess/Skilled Observatio, Medication Management POST DISCHARGE ORDERS: Activity Instructions for Disc: Activity as tolerated Weight Bearing Status after Di: No restrictions DIET AFTER DISCHARGE: ADA CHECKS AFTER DISCHARGE: Checks after discharge: Check blood sugar, ac/hs TREATMENT/EQUIPMENT ORDERS: Adaptive Equipment Issued: None Discharge Respiratory Equipmen: Oxygen CERTIFICATION STATEMENT: Certification Statement: Based on the above finding, I certify that this patient is confined to the home and needs intermittent fpc care, physical therapy and/or speech therapy, or continues to need occupational therapy.~ This patient is under my care, and I have initiated the establishment of the plan of care.~ This patient will be followed by myself or a community physician who will periodically review the plan of care. DISCHARGE MEDICATIONS: Home Meds Reported Medications Apixaban (ELIQUIS) 5 Mg Tablet, 5 MG PO BID for PREVENT BLOOD CLOTS, TAB 10/09/20 Sotalol Hcl (SOTALOL) 120 Mg Tablet, 1 TAB PO BID for AFIB 10/09/20 Alprazolam (XANAX) 0.25 Mg Tablet, 1 TAB PO TID PRN for ANXIETY, #60 TAB Last dose: Next dose: 10/14/14 Omeprazole Magnesium (PRILOSEC OTC) 20 Mg Tablet.dr, 1 TAB PO DAILY for HEARTBURN / GAS, #30 TAB 3 Refills Last dose: Today at 0900 Next dose: Tomorrow at 0900 Indication: Heartburn 10/14/14 Discontinued Reported Medications Apixaban (ELIQUIS) 5 Mg Tablet, 5 MG PO, TAB 12/28/17 Propafenone Hcl (PROPAFENONE HCL) 150 Mg Tablet, 150 MG PO, TAB 12/28/17 Metoprolol Succinate (METOPROLOL SUCCINATE ( XL )) 25 Mg Tab.er.24h, 1 TAB PO DAILY, #30 TAB 5 Refills Last dose: Today at 0900 Next due: Tomorrow at 0900 Indication: Heart medication 10/15/14 LADAN RAMIREZ MD Oct 15, 2020 10:50
--- NOTE | 2020-10-15 12:40 | NUR ---
PATIENT IS DISCHARGED HOME WITH HOME HEALTH. PATIENT IS GIVEN ALL DISCHARGE AND FOLLOW UP INSTRUCTIONS. PTS IV IS REMOVED AND TELE MONITOR D/C'D PT HAS ALL BELONGINGS AT TIME OF DISCHARGE. PT IS ESCORTED OFF OF UNIT ACCOMPANIED BY STAFF.
[2020-10-15] MEDS ORDERED: CEFDINIR 300 MG CAPSULE PO SCH (21:00)
== END 2020-10-15 12:57 | disposition home health service (06) | DRG 871 ==
LOC: ER 16:38 → 1 SOUTH 19:15
PROVIDERS: ADMIT Family Medicine; ATTEND Family Medicine
DX: A41.9 Sepsis, unspecified organism (principal); J96.00 Acute respiratory failure, unspecified whether with hypoxia or hypercapnia; U07.1 COVID-19; J12.82 Pneumonia due to coronavirus disease 2019; I48.20 Chronic atrial fibrillation, unspecified; D69.6 Thrombocytopenia, unspecified; E11.65 Type 2 diabetes mellitus with hyperglycemia; E78.00 Pure hypercholesterolemia, unspecified; E78.5 Hyperlipidemia, unspecified; E86.0 Dehydration; I10 Essential (primary) hypertension; I25.10 Atherosclerotic heart disease of native coronary artery without angina pectoris; K21.9 Gastro-esophageal reflux disease without esophagitis; E66.9 Obesity, unspecified; F41.9 Anxiety disorder, unspecified; M19.90 Unspecified osteoarthritis, unspecified site; Z79.01 Long term (current) use of anticoagulants; Z80.1 Family history of malignant neoplasm of trachea, bronchus and lung; Z81.8 Family history of other mental and behavioral disorders; Z82.49 Family history of ischemic heart disease and other diseases of the circulatory system; Z83.3 Family history of diabetes mellitus; Z87.11 Personal history of peptic ulcer disease; Z90.49 Acquired absence of other specified parts of digestive tract; Z90.710 Acquired absence of both cervix and uterus
CPT/HCPCS: 36415; 71045; 71250; 80048; 80053; 80061; 81001; 82947; 83605; 84443; 84484; 85025; 87040; 93005; 94618; J0696; J1100; J1650; J1956; J2405; J7120; J8540; Q0162; U0003; 99285-25